=== PATIENT | female | born 1965 | race African-American/Black ===

== ENCOUNTER → 2020-08-17 08:02 | Outpatient (BNVA) | payer OTHER, SELFPAY | PROVIDERS: PCP Internal Medicine; Referring Provider Internal Medicine; Visit Provider Student in an Organized Health Care Education/Training Program | DX: Z76.89 Persons encountering health services in other specified circumstances (principal) ==

== ENCOUNTER → 2020-08-19 10:41 | Outpatient (BNVA) | payer OTHER, SELFPAY | PROVIDERS: PCP Internal Medicine; Referring Provider Internal Medicine; Visit Provider Internal Medicine Cardiovascular Disease | DX: I10 Essential (primary) hypertension (principal); R07.9 Chest pain, unspecified; Z79.899 Other long term (current) drug therapy | CPT/HCPCS: 99212 ==

== ENCOUNTER → 2020-11-10 09:26 | Outpatient (BNVA) | payer OTHER, SELFPAY | PROVIDERS: PCP Internal Medicine; Visit Provider Student in an Organized Health Care Education/Training Program | DX: M05.9 Rheumatoid arthritis with rheumatoid factor, unspecified (principal); Z79.899 Other long term (current) drug therapy | CPT/HCPCS: 99212 ==

== ENCOUNTER → 2021-02-08 08:23 | Outpatient (BNVA) | payer OTHER, SELFPAY | PROVIDERS: PCP Internal Medicine; Visit Provider Student in an Organized Health Care Education/Training Program | DX: M05.9 Rheumatoid arthritis with rheumatoid factor, unspecified (principal) | CPT/HCPCS: 99212 ==

== ENCOUNTER 2021-03-16 08:29 | Outpatient (REF) | payer OTHER, SELFPAY ==
[2021-03-18 20:56] LABS: HPV mRNA E6/E7 rflx Not Detected (Not Detected)
== END 2021-03-16 08:30 | disposition home or self-care (01) ==
LOC: HO.LAB 08:29
PROVIDERS: PCP Internal Medicine; Visit Provider Obstetrics & Gynecology
DX: Z01.419 Encounter for gynecological examination (general) (routine) without abnormal findings (principal); Z11.51 Encounter for screening for human papillomavirus (HPV)
CPT/HCPCS: 87624; 88142

== ENCOUNTER → 2021-04-28 08:23 | Outpatient (BNVA) | payer OTHER, SELFPAY | PROVIDERS: PCP Internal Medicine; Visit Provider Student in an Organized Health Care Education/Training Program ==

== ENCOUNTER 2021-07-29 12:02 | Outpatient (REF) | payer OTHER, SELFPAY ==
--- NOTE | ~2021-07-29 | MM_ITS ---
EXAMINATION: MM SCREENING DIGITAL BREAST TOMOSYNTHESIS, BILATERAL CLINICAL INFORMATION: Screening. Asymptomatic. The lifetime risk of breast cancer based on the Tyrer-Cuzick Model is 8%. COMPARISON: Mammography: 06/22/2020 and prior studies dating back to 09/22/2011. TECHNIQUE: Digital breast tomosynthesis is performed in both the craniocaudal and mediolateral oblique views along with computer-aided detection (CAD). Synthesized 2D images are generated from the tomosynthesis. Additional right MLO view is provided. FINDINGS: There are scattered areas of fibroglandular density (ACR BI-RADS breast composition Category b). Parenchymal pattern is similar to prior exams. The left breast is chronic stable asymmetry posterior outer quadrant and mild chronic duct ectasia similar to 2011. No developing density. The right breast is unremarkable. There is no interval mass or architectural abnormality or abnormal calcifications in either breast. The axilla and skin contours are unremarkable. MM/MM tomosynthesis screening BI IMPRESSION: No significant changes prior exams. ASSESSMENT: BI-RADS 2: Benign RECOMMENDATION: Routine annual mammography screening. This patient's information was entered into a reminder system with a target due date for their next mammogram.
== END 2021-07-29 12:03 | disposition home or self-care (01) ==
LOC: HO.MAMMO 12:02
PROVIDERS: PCP Internal Medicine; Visit Provider Obstetrics & Gynecology
DX: Z12.31 Encounter for screening mammogram for malignant neoplasm of breast (principal)
CPT/HCPCS: 77063; 77067

== ENCOUNTER → 2021-08-04 07:53 | Outpatient (BNVA) | payer OTHER, SELFPAY | PROVIDERS: PCP Internal Medicine; Visit Provider Nurse Practitioner Family ==

== ENCOUNTER → 2021-10-10 11:10 | Outpatient (BNVA) | payer OTHER, SELFPAY | PROVIDERS: PCP Internal Medicine; Referring Provider Internal Medicine; Visit Provider Internal Medicine Cardiovascular Disease | DX: I10 Essential (primary) hypertension (principal); Z82.49 Family history of ischemic heart disease and other diseases of the circulatory system | CPT/HCPCS: 93005 ==

== ENCOUNTER → 2021-11-08 07:55 | Outpatient (BNVA) | payer OTHER, SELFPAY | PROVIDERS: PCP Internal Medicine; Visit Provider Nurse Practitioner Family ==

== ENCOUNTER 2021-12-09 08:49 | Outpatient (REF) | payer OTHER, SELFPAY ==
--- NOTE | ~2021-12-09 | US_ITS ---
EXAMINATION: US RETROPERITONEAL LIMITED (AORTA) CLINICAL INFORMATION: Family history of AAA. COMPARISON: None TECHNIQUE: Madrigal-scale, color Doppler and spectral Doppler evaluation of the abdominal aorta. FINDINGS: The aorta is normal. The measurements of the aorta in maximum AP and transverse dimensions respectively are as follows: Proximal: 2.5 x 2.4 cm. Mid: 1.9 x 2.3 cm. Distal: 1.8 x 1.8 cm. PSV: 102 cm/s. The measurements of the common iliac arteries in maximum AP and TRV dimensions are as follows: Right Common Iliac Artery: 0.98 x 1.1 cm. Left Common Iliac Artery: 0.8 x 0.95 cm. US/US abdominal aortic aneurysm IMPRESSION: No evidence of AAA.
== END 2021-12-09 08:50 | disposition home or self-care (01) ==
LOC: HO.HMGCX 08:49
PROVIDERS: Visit Provider Internal Medicine Cardiovascular Disease
DX: Z13.6 Encounter for screening for cardiovascular disorders (principal); Z82.49 Family history of ischemic heart disease and other diseases of the circulatory system
CPT/HCPCS: 76706

== ENCOUNTER 2021-12-09 09:13 | Outpatient (REF) | payer OTHER, SELFPAY ==
[2021-12-09 11:39] LABS: MANUAL DIFF FLAG NO
[2021-12-09 11:47] LABS: Basophils Percent Auto 0.8 % (0-2); Eosinophils Absolute Auto 0.1 X10*3/uL (0.0-0.4); Eosinophils Percent Auto 2.5 % (0-4); Hematocrit 37.4 % (37.0-47.0); Hemoglobin 12.3 g/dl (12.0-16.0); Imm Gran Abs Auto 0.03 X10*3/uL (0.00-0.03); Imm Gran Pct Auto 0.6 % (0.0-0.4); Lymphocytes Absolute Auto 2.2 X10*3/uL (1.2-4.9); Lymphocytes Percent Auto 46.8 % (20-40); Mean Corpuscular HGB Conc 32.9 g/dl (31.0-35.0); Mean Corpuscular Hemoglobin 30.9 pg (27.0-33.0); Mean Platelet Volume 9.8 fL (9.4-12.3); Monocytes Absolute Auto 0.4 X10*3/uL (0.1-1.2); Monocytes Percent Auto 7.8 % (2-11); Neutrophils Percent Auto 41.5 % (45-73); Platelet Count 290 X10*3/uL (160-400); Red Blood Count 3.98 X10*6/uL (4.20-5.50); White Blood Count 4.8 X10*3/uL (4.8-10.8)
[2021-12-09 12:18] LABS: Cholesterol 188 mg/dL; HDL Cholesterol 59 mg/dL; LDL Cholesterol Calculated 113 mg/dl; Triglycerides 84 mg/dL
[2021-12-09 12:22] LABS: Alanine Aminotransferase 24 U/L (0-31); Albumin Level 4.3 g/dL (3.5-5.0); Alkaline Phosphatase 88 U/L (39-117); Anion Gap 10 (12-20); Aspartate Amino Transferase 23 U/L (5-31); Bilirubin Total 0.6 mg/dL (0.0-1.0); Blood Urea Nitrogen 9 mg/dL (9-16); C Reactive Protein 0.14 mg/dL (< or = 0.50); Calcium 9.5 mg/dL (8.4-10.2); Carbon Dioxide 29 mmol/L (22-29); Chloride 108 mmol/L (96-108); Estimated Glomerular Filt Rate > 60; Glucose Random 94 mg/dL (60-115); Potassium 4.4 mmol/L (3.3-5.1); Sodium 143 mmol/L (135-145); Total Protein 7.2 g/dL (6.5-8.0)
[2021-12-09 12:33] LABS: Erythrocyte Sedimentation Rate 8 MM/HR (0-20)
== END 2021-12-09 09:14 | disposition home or self-care (01) ==
LOC: HO.HMGCLDS 09:13
PROVIDERS: PCP Nurse Practitioner Family; Visit Provider Internal Medicine
DX: Z00.01 Encounter for general adult medical examination with abnormal findings (principal); M05.9 Rheumatoid arthritis with rheumatoid factor, unspecified; E78.2 Mixed hyperlipidemia
CPT/HCPCS: 36415; 80053; 80061; 85025; 85652; 86140

== ENCOUNTER → 2022-01-09 12:09 | Outpatient (BNVA) | payer OTHER, SELFPAY | PROVIDERS: PCP Nurse Practitioner Family; Referring Provider Internal Medicine; Visit Provider Internal Medicine Gastroenterology | DX: R19.7 Diarrhea, unspecified (principal); K80.20 Calculus of gallbladder without cholecystitis without obstruction | CPT/HCPCS: 99202 ==

== ENCOUNTER → 2022-03-07 07:56 | Outpatient (BNVA) | payer OTHER, SELFPAY | PROVIDERS: PCP Internal Medicine; Visit Provider Nurse Practitioner Family | DX: M05.9 Rheumatoid arthritis with rheumatoid factor, unspecified (principal) ==

== ENCOUNTER → 2022-03-21 07:58 | Outpatient (BNVA) | payer OTHER, SELFPAY | PROVIDERS: PCP Internal Medicine; Visit Provider Obstetrics & Gynecology | DX: Z01.419 Encounter for gynecological examination (general) (routine) without abnormal findings (principal) ==

== ENCOUNTER 2022-04-25 08:25 | Outpatient (REF) | payer OTHER, SELFPAY ==
--- NOTE | ~2022-04-25 | US_ITS ---
EXAMINATION: US ABDOMEN COMPLETE CLINICAL INFORMATION: Calculus gallbladder without cholecystitis without obstruction. COMPARISON: Ultrasound aorta 12/09/2021. TECHNIQUE: Real-time imaging of the abdominal viscera. FINDINGS: PANCREAS: Not well visualized due to bowel gas ABDOMINAL AORTA: The proximal, mid, and distal segments are normal in caliber. INFERIOR VENA CAVA: Visualized portions are normal. LIVER: The liver is normal in size. The liver contour is normal. Liver echotexture is slightly increased. No focal hepatic lesion. There is no intrahepatic biliary duct dilatation seen. GALLBLADDER: The gallbladder is physiologically distended. Multiple mobile gallstones are present. No evidence of gallbladder wall thickening or pericholecystic fluid. COMMON BILE DUCT: Normal in caliber measuring 0.4 cm in diameter. RIGHT KIDNEY: Normal. No hydronephrosis. No renal calculi or focal parenchymal lesions. The kidney measures 10.5 cm in maximum dimension. LEFT KIDNEY: Normal. No hydronephrosis. No renal calculi or focal parenchymal lesions. The kidney measures 10.2 cm in maximum dimension. SPLEEN: Normal. The spleen measures 7.5 cm in maximum dimension. FREE FLUID: None. US/US abdomen complete IMPRESSION: Gallstones. Slightly echogenic liver probably representing fatty infiltration. Limited visualization of the pancreas.
== END 2022-04-25 08:26 | disposition home or self-care (01) ==
LOC: HO.US 08:25
PROVIDERS: Visit Provider Internal Medicine Gastroenterology
DX: K80.20 Calculus of gallbladder without cholecystitis without obstruction (principal)
CPT/HCPCS: 76700

== ENCOUNTER 2022-07-01 11:37 | Outpatient (REF) | payer OTHER, SELFPAY ==
[2022-07-01 13:28] LABS: MANUAL DIFF FLAG NO
[2022-07-01 13:31] LABS: Basophils Absolute Auto 0.1 X10*3/uL (0.0-0.2); Basophils Percent Auto 1.2 % (0-2); Eosinophils Absolute Auto 0.2 X10*3/uL (0.0-0.4); Eosinophils Percent Auto 3.5 % (0-4); Hematocrit 39.8 % (37.0-47.0); Imm Gran Abs Auto 0.05 X10*3/uL (0.00-0.03); Imm Gran Pct Auto 0.9 % (0.0-0.4); Lymphocytes Absolute Auto 2.4 X10*3/uL (1.2-4.9); Lymphocytes Percent Auto 43.1 % (20-40); Mean Corpuscular HGB Conc 32.7 g/dl (31.0-35.0); Mean Corpuscular Hemoglobin 30.1 pg (27.0-33.0); Mean Corpuscular Volume 92.1 fL (80.0-98.0); Mean Platelet Volume 9.9 fL (9.4-12.3); Monocytes Absolute Auto 0.5 X10*3/uL (0.1-1.2); Monocytes Percent Auto 8.1 % (2-11); Neutrophils Absolute Auto 2.4 x10*3/uL (2.0-8.3); Neutrophils Percent Auto 43.2 % (45-73); Platelet Count 327 X10*3/uL (160-400); Red Blood Count 4.32 X10*6/uL (4.20-5.50); Red Cell Distribution Width 12.4 % (11.0-16.0); White Blood Count 5.7 X10*3/uL (4.8-10.8)
[2022-07-01 13:48] LABS: Alanine Aminotransferase 31 U/L (0-31); Albumin Level 4.5 g/dL (3.5-5.0); Alkaline Phosphatase 95 U/L (39-117); Anion Gap 15 (12-20); Aspartate Amino Transferase 27 U/L (5-31); Bilirubin Total 0.6 mg/dL (0.0-1.0); Blood Urea Nitrogen 9 mg/dL (9-16); C Reactive Protein 0.24 mg/dL (< or = 0.50); Calcium 9.9 mg/dL (8.4-10.2); Carbon Dioxide 27 mmol/L (22-29); Chloride 104 mmol/L (96-108); Estimated Glomerular Filt Rate > 60; Glucose Random 79 mg/dL (60-115); Potassium 4.3 mmol/L (3.3-5.1); Sodium 142 mmol/L (135-145); Total Protein 7.8 g/dL (6.5-8.0)
[2022-07-01 14:07] LABS: Erythrocyte Sedimentation Rate 12 MM/HR (0-20)
== END 2022-07-01 11:38 | disposition home or self-care (01) ==
LOC: HO.HMGCLDS 11:37
PROVIDERS: PCP Internal Medicine; Visit Provider Nurse Practitioner Family
DX: M05.9 Rheumatoid arthritis with rheumatoid factor, unspecified (principal)
CPT/HCPCS: 36415; 80053; 85025; 85652; 86140

== ENCOUNTER 2022-08-10 11:24 | Outpatient (REF) | payer OTHER, SELFPAY ==
--- NOTE | ~2022-08-10 | MM_ITS ---
EXAMINATION: MM SCREENING DIGITAL BREAST TOMOSYNTHESIS, BILATERAL CLINICAL INFORMATION: Screening. Asymptomatic. The lifetime risk of breast cancer based on the Tyrer-Cuzick Model is 5%. COMPARISON: Mammography: 07/29/2021, 06/22/2020, 11/24/2017 TECHNIQUE: Digital breast tomosynthesis is performed in both the craniocaudal and mediolateral oblique views along with computer-aided detection (CAD). Synthesized 2D images are generated from the tomosynthesis. FINDINGS: There are scattered areas of fibroglandular density (ACR BI-RADS breast composition Category b). There are no significant masses, abnormal calcifications, or other abnormalities. Parenchymal pattern is similar to prior studies. There is no developing density or architectural abnormality. The axilla and skin contours are unremarkable. No significant changes. MM/MM tomosynthesis screening BI IMPRESSION: No mammographic evidence of malignancy. ASSESSMENT: BI-RADS 2: Benign RECOMMENDATION: Routine annual mammography screening. This patient's information was entered into a reminder system with a target due date for their next mammogram.
== END 2022-08-10 11:25 | disposition home or self-care (01) ==
LOC: HO.MAMMO 11:24
PROVIDERS: PCP Internal Medicine; Visit Provider Internal Medicine
DX: Z12.31 Encounter for screening mammogram for malignant neoplasm of breast (principal)
CPT/HCPCS: 77063; 77067

== ENCOUNTER 2022-11-20 11:45 | Outpatient (REF) | payer OTHER, SELFPAY ==
[2022-11-20 14:10] LABS: MANUAL DIFF FLAG NO
[2022-11-20 14:19] LABS: Basophils Absolute Auto 0.1 X10*3/uL (0.0-0.2); Eosinophils Absolute Auto 0.2 X10*3/uL (0.0-0.4); Hematocrit 38.6 % (37.0-47.0); Hemoglobin 12.5 g/dl (12.0-16.0); Imm Gran Abs Auto 0.05 X10*3/uL (0.00-0.03); Imm Gran Pct Auto 0.8 % (0.0-0.4); Lymphocytes Absolute Auto 2.9 X10*3/uL (1.2-4.9); Lymphocytes Percent Auto 48.2 % (20-40); Mean Corpuscular HGB Conc 32.4 g/dl (31.0-35.0); Mean Corpuscular Hemoglobin 30.5 pg (27.0-33.0); Mean Corpuscular Volume 94.1 fL (80.0-98.0); Mean Platelet Volume 9.7 fL (9.4-12.3); Monocytes Absolute Auto 0.5 X10*3/uL (0.1-1.2); Monocytes Percent Auto 7.6 % (2-11); Neutrophils Absolute Auto 2.3 x10*3/uL (2.0-8.3); Neutrophils Percent Auto 39.4 % (45-73); Platelet Count 315 X10*3/uL (160-400); Red Cell Distribution Width 12.1 % (11.0-16.0)
[2022-11-20 14:38] LABS: Alanine Aminotransferase 26 U/L (0-31); Aspartate Amino Transferase 24 U/L (5-31); C Reactive Protein 0.24 mg/dL (< or = 0.50); Estimated Glomerular Filt Rate > 60
[2022-11-20 15:15] LABS: Erythrocyte Sedimentation Rate 12 MM/HR (0-20)
== END 2022-11-20 11:46 | disposition home or self-care (01) ==
LOC: HO.HMGCLDS 11:45
PROVIDERS: Visit Provider Nurse Practitioner Family
DX: M05.9 Rheumatoid arthritis with rheumatoid factor, unspecified (principal); Z79.899 Other long term (current) drug therapy
CPT/HCPCS: 36415; 82565; 84450; 84460; 85025; 85652; 86140

== ENCOUNTER → 2022-11-21 07:53 | Outpatient (BNVA) | payer OTHER, SELFPAY | PROVIDERS: PCP Internal Medicine; Visit Provider Nurse Practitioner Family | DX: Z13.89 Encounter for screening for other disorder (principal) ==

== ENCOUNTER 2023-03-12 12:36 | Outpatient (REF) | payer OTHER, SELFPAY ==
[2023-03-12 14:13] LABS: MANUAL DIFF FLAG NO
[2023-03-12 14:23] LABS: Basophils Absolute Auto 0.1 X10*3/uL (0.0-0.2); Basophils Percent Auto 1.1 % (0-2); Eosinophils Absolute Auto 0.2 X10*3/uL (0.0-0.4); Eosinophils Percent Auto 2.4 % (0-4); Hematocrit 38.6 % (37.0-47.0); Hemoglobin 12.5 g/dl (12.0-16.0); Imm Gran Abs Auto 0.04 X10*3/uL (0.00-0.03); Imm Gran Pct Auto 0.6 % (0.0-0.4); Lymphocytes Absolute Auto 3.6 X10*3/uL (1.2-4.9); Lymphocytes Percent Auto 54.1 % (20-40); Mean Corpuscular HGB Conc 32.4 g/dl (31.0-35.0); Mean Corpuscular Hemoglobin 30.5 pg (27.0-33.0); Mean Corpuscular Volume 94.1 fL (80.0-98.0); Mean Platelet Volume 9.4 fL (9.4-12.3); Monocytes Absolute Auto 0.5 X10*3/uL (0.1-1.2); Monocytes Percent Auto 7.2 % (2-11); Neutrophils Absolute Auto 2.3 x10*3/uL (2.0-8.3); Neutrophils Percent Auto 34.6 % (45-73); Platelet Count 316 X10*3/uL (160-400); Red Cell Distribution Width 12.4 % (11.0-16.0); White Blood Count 6.6 X10*3/uL (4.8-10.8)
[2023-03-12 14:41] LABS: Alanine Aminotransferase 30 U/L (0-31); Aspartate Amino Transferase 23 U/L (5-31); C Reactive Protein 0.13 mg/dL (< or = 0.50); Estimated Glomerular Filt Rate > 60
[2023-03-12 15:24] LABS: Erythrocyte Sedimentation Rate 8 MM/HR (0-20)
== END 2023-03-12 12:37 | disposition home or self-care (01) ==
LOC: HO.HMGCLDS 12:36
PROVIDERS: PCP Internal Medicine; Visit Provider Nurse Practitioner Family
DX: M05.9 Rheumatoid arthritis with rheumatoid factor, unspecified (principal); Z79.899 Other long term (current) drug therapy
CPT/HCPCS: 36415; 82565; 84450; 84460; 85025; 85652; 86140

== ENCOUNTER → 2023-03-21 07:38 | Outpatient (BNVA) | payer OTHER, SELFPAY | PROVIDERS: PCP Internal Medicine; Visit Provider Nurse Practitioner Family ==

== ENCOUNTER → 2023-03-26 08:03 | Outpatient (BNVA) | payer OTHER, SELFPAY | PROVIDERS: PCP Internal Medicine; Visit Provider Obstetrics & Gynecology ==

== ENCOUNTER 2023-07-03 11:48 | Outpatient (REF) | payer OTHER, SELFPAY ==
[2023-07-03 13:33] LABS: MANUAL DIFF FLAG NO
[2023-07-03 13:51] LABS: Basophils Absolute Auto 0.1 X10*3/uL (0.0-0.2); Eosinophils Absolute Auto 0.3 X10*3/uL (0.0-0.4); Eosinophils Percent Auto 3.8 % (0-4); Hematocrit 39.3 % (37.0-47.0); Hemoglobin 12.6 g/dl (12.0-16.0); Imm Gran Abs Auto 0.08 X10*3/uL (0.00-0.03); Imm Gran Pct Auto 1.2 % (0.0-0.4); Lymphocytes Absolute Auto 3.1 X10*3/uL (1.2-4.9); Lymphocytes Percent Auto 46.4 % (20-40); Mean Corpuscular HGB Conc 32.1 g/dl (31.0-35.0); Mean Corpuscular Volume 93.6 fL (80.0-98.0); Mean Platelet Volume 9.6 fL (9.4-12.3); Monocytes Absolute Auto 0.5 X10*3/uL (0.1-1.2); Monocytes Percent Auto 7.4 % (2-11); Neutrophils Absolute Auto 2.7 x10*3/uL (2.0-8.3); Neutrophils Percent Auto 40.2 % (45-73); Platelet Count 334 X10*3/uL (160-400); Red Cell Distribution Width 12.4 % (11.0-16.0); White Blood Count 6.8 X10*3/uL (4.8-10.8)
[2023-07-03 14:08] LABS: Alanine Aminotransferase 30 U/L (0-31); Aspartate Amino Transferase 30 U/L (5-31); C Reactive Protein 0.24 mg/dL (< or = 0.50); Estimated Glomerular Filt Rate > 60
[2023-07-03 14:35] LABS: Erythrocyte Sedimentation Rate 11 MM/HR (0-20)
== END 2023-07-03 11:49 | disposition home or self-care (01) ==
LOC: HO.HMGCLDS 11:48
PROVIDERS: PCP Internal Medicine; Visit Provider Nurse Practitioner Family
DX: M05.9 Rheumatoid arthritis with rheumatoid factor, unspecified (principal); Z79.899 Other long term (current) drug therapy
CPT/HCPCS: 36415; 82565; 84450; 84460; 85025; 85652; 86140

== ENCOUNTER 2023-07-05 08:03 | Outpatient (AMB) | payer OTHER, SELFPAY ==
[2023-07-05 08:10] VITALS: BP 124/76; PULSE 85; TEMP 36.2; BMI 28.6
--- NOTE | 2023-07-05 08:10 | A.OFFVIS_ITS ---
Intake Vital Signs 07/05/23 08:10 Height 5 ft 6 in Weight 177 lb 7.554 oz BMI 28.6 BP 124/76 Blood Pressure Location Rt brachial Position Sitting Pulse 85 Pulse Source Pulse Oximeter Temp 97.2 F Temp Source Skin Intake Visit Reasons: rheumatoid arthritis Intake Note: Pt seen today for RA follow up. C/o pain in right knee, trouble with stairs. 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 Accompanied by: Self / Same As Patient Allergies watermelon [WATERMELON] Allergy (Severe, Verified 07/05/23 08:12) HIVES/ASTHMA EXACERBATION latex [LATEX] Allergy (Intermediate, Verified 07/05/23 08:12) RASH/ASTHMA EXACERBATION cantaloupe Allergy (Verified 07/05/23 08:12) Hives grape Allergy (Verified 07/05/23 08:12) Hives nuts Allergy (Mild, Uncoded 07/05/23 08:12) Hives Medication List - Last Reconciled 07/05/23 by Huey Mcnulty MD acetaminophen ER (Tylenol Arthritis Pain) 1,300 mg PO Q12H PRN albuterol sulfate 90 mcg/actuation 2 puffs inhalation Q6H PRN atenolol 50 mg PO DAILY atorvastatin 40 mg PO DAILY bupropion HCl (Wellbutrin SR) 100 mg PO DAILY cetirizine (Zyrtec) 10 mg PO DAILY duloxetine 60 mg PO DAILY lactobacillus combination no.8 (Adult Probiotic) 3,000 mmu cells PO DAILY leflunomide 20 mg PO DAILY mometasone 200 mcg/actuation (Asmanex HFA) 2 puffs inhalation BID multivitamin 1 tab PO DAILY multivitamin with minerals (Hair,Skin and Nails tablet) 1 tab PO DAILY HPI HPI Comments History of Present Illness Details This is a 57-year-old female with seropositive RA who returns for follow-up. On leflunomide 20 mg daily. No recent RA flares. Recently she has been having some knee pain especially when going down the stairs and with walking. Denies any swelling or warmth. No morning stiffness. Patient states that she has history of asthma and seasonal allergies, she gets intermittent shortness of breath when going up 1 flight of stairs. generally she is not short of breath. Her most recent bone density scan was more than 3 years ago [facility] Medical History (Updated 07/05/23 @ 08:42 by Huey Mcnulty MD) Chest pain Hypertension Left ankle effusion Seropositive rheumatoid arthritis Surgical History History of tonsillectomy Family History Father HTN (hypertension) Mother HTN (hypertension) Diabetes Social History Alcohol intake: current Alcohol intake frequency: holidays/special occasions only Alcohol type: wine Patient Tobacco Use Status: Never used Tobacco e-Cigarette/Vaping Use: Never Used Female Reproductive History Menstrual Age of Menarche: 12 Review of Systems Musc Reports arthralgias Physical Exam Vital Signs: Last Vital Signs Temp 97.2 F 07/05/23 08:10 Pulse 85 07/05/23 08:10 BP 124/76 07/05/23 08:10 BMI result Body Mass Index 28.6 Const General: cooperative, healthy appearing and comfortable Nutritional Appearance: overweight Orientation/consciousness: patient oriented x3 Limitations: no limitations HEENT Head: Yes normocephalic and Yes atraumatic Mouth: moist mucous membranes Resp Effort & Inspection: normal respiratory effort and able to speak in complete sen tences Auscultation: clear to auscultation bilaterally Cardio Rate: regular rate Rhythm: regular rhythm Skin General skin exam: no rashes or lesions noted Neuro General: patient oriented x3 Extrem Other: No active synovitis Mild ulnar deviation at the MCPs of left hand Bilateral knee crepitus Minimal right knee pain with full flexion No ankle or foot swelling Normal nailfold capillaroscopy Assessment & Plan Assessment & Plan (1) Seropositive rheumatoid arthritis: Comment: ++RF++CCP dx at age 20 Plaquenil, gold, prednisone, Enbrel, Humira-dates unknown Methotrexate-05/2020-01/2021- stopped due to hair loss/GI upset Leflunomide 10 mg- 01/2021-04/2021 -active disease on exam Leflunomide 20 mg -04/2021- present effective Code(s): M05.9 - Rheumatoid arthritis with rheumatoid factor, unspecified Plan: This is a 57-year-old female with seropositive RA who presents for follow-up. Her RA is well controlled on leflunomide 20 mg daily. Inflammatory markers normal. 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 Given long exposure to steroids and history of RA, will check a bone density scan to evaluate for osteoporosis (3) High risk medication use: Code(s): Z79.899 - Other group home (current) drug therapy Plan: On leflunomide. Well tolerated. Monitor safety labs (4) Osteoarthritis of right knee: Code(s): M17.11 - Unilateral primary osteoarthritis, right knee Qualifiers: Osteoarthritis type: primary Qualified Code(s): M17.11 - Unilateral primary osteoarthritis, right knee Plan: Likely OA rather than RA. Patient can use Tylenol Arthritis, and Voltaren gel, ibuprofen sparingly. Can consider knee injection if symptoms are progressive Plan I spent 26 minutes reviewing patient's chart, evaluating patient, ordering diagnostic workup, counseling patient and documenting in the chart Orders: Orders Comprehensive Met. 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
== END 2023-07-05 08:33 | disposition home or self-care (01) ==
PROVIDERS: PCP Internal Medicine; Visit Provider Student in an Organized Health Care Education/Training Program
DX: M05.79 Rheumatoid arthritis with rheumatoid factor of multiple sites without organ or systems involvement (principal); Z79.52 Long term (current) use of systemic steroids; Z79.899 Other long term (current) drug therapy; M17.11 Unilateral primary osteoarthritis, right knee
CPT/HCPCS: 99214

== ENCOUNTER → 2023-07-05 08:03 | Outpatient (BNVA) | payer OTHER, SELFPAY | PROVIDERS: PCP Internal Medicine; Visit Provider Student in an Organized Health Care Education/Training Program ==

== ENCOUNTER 2023-07-13 10:18 | Outpatient (REF) | payer OTHER, SELFPAY ==
--- NOTE | 2023-07-13 11:52 | PFT_ITS ---
FLOWS: 1. FEV1 134% of predicted at 2.72 L. 2. FVC 126% of predicted at 3.22 L. 3. FEV1 to FVC ratio of 0.85. 4. No bronchodilator response except in small to medium airways. LUNG VOLUMES: 1. Total lung capacity 96% of predicted at 4.39 L. 2. Residual volume 68% of predicted at 1.16 L. 3. Slow vital capacity 96% of predicted at 3.24 L. 4. Expiratory reserve volume 69% of predicted at 0.71 L. 5. Diffusion capacity is normal. IMPRESSION: No obstructive or restrictive ventilatory defect. No bronchodilator response except in small to medium airways. This test results again suggest underlying asthma. Clinically correlation is advised. MD PASQUALE Stanford/MODL / [id number]
== END 2023-07-13 10:19 | disposition home or self-care (01) ==
LOC: HO.RESP 10:18
PROVIDERS: PCP Internal Medicine; Visit Provider Student in an Organized Health Care Education/Training Program
DX: R06.00 Dyspnea, unspecified (principal)
CPT/HCPCS: 94010; 94729

== ENCOUNTER → 2023-07-13 11:52 | Outpatient (BNV) | payer OTHER, SELFPAY | PROVIDERS: PCP Internal Medicine; Visit Provider Internal Medicine Pulmonary Disease | DX: R06.09 Other forms of dyspnea (principal) | CPT/HCPCS: 94060; 94727; 94729 ==

== ENCOUNTER 2023-07-26 14:58 | Outpatient (REF) | payer OTHER, SELFPAY | END 2023-07-26 14:59 | disposition home or self-care (01) | LOC: HO.MAMMO 14:58 | PROVIDERS: PCP Internal Medicine; Visit Provider Student in an Organized Health Care Education/Training Program | DX: Z13.820 Encounter for screening for osteoporosis (principal); Z79.52 Long term (current) use of systemic steroids; Z78.0 Asymptomatic menopausal state | CPT/HCPCS: 77080 ==

== ENCOUNTER 2023-08-16 11:26 | Outpatient (REF) | payer OTHER, SELFPAY ==
--- NOTE | ~2023-08-16 | MM_ITS ---
EXAMINATION: MM SCREENING DIGITAL BREAST TOMOSYNTHESIS, BILATERAL CLINICAL INFORMATION: Screening. Asymptomatic. COMPARISON: Mammography: 08/10/2022, and dating back to 03/20/2015. TECHNIQUE: Digital breast tomosynthesis is performed in both the craniocaudal and mediolateral oblique views along with computer-aided detection (CAD). Synthesized 2D images are generated from the tomosynthesis. FINDINGS: There are scattered areas of fibroglandular density (ACR BI-RADS breast composition Category b). A region of nodular asymmetry in the outer and upper left breast, posterior one third, is unchanged from studies dating back to 2014. There are associated dystrophic calcifications. There is a subtle linear region of calcifications in the upper outer left breast, unchanged from prior studies and benign. There are no suspicious masses, suspicious grouped calcifications, or areas of architectural distortion in either breast. The parenchymal pattern is stable from prior exams. MM/MM tomosynthesis screening BI IMPRESSION: No mammographic evidence of malignancy. Stable benign findings. ASSESSMENT: BI-RADS BI-RADS 2 - Benign Findings RECOMMENDATION: Routine annual mammography screening. 1 year F/U This examination should not preclude the clinical evaluation of a suspicious palpable abnormality. This patient's information was entered into a reminder system with a target due date for their next mammogram.
== END 2023-08-16 11:27 | disposition home or self-care (01) ==
LOC: HO.MAMMO 11:26
PROVIDERS: PCP Internal Medicine; Visit Provider Internal Medicine
DX: Z12.31 Encounter for screening mammogram for malignant neoplasm of breast (principal)
CPT/HCPCS: 77063; 77067

== ENCOUNTER → 2023-08-16 11:30 | Outpatient (BNV) | payer OTHER, SELFPAY | PROVIDERS: PCP Internal Medicine; Visit Provider Radiology Diagnostic Radiology | DX: Z12.31 Encounter for screening mammogram for malignant neoplasm of breast (principal) | CPT/HCPCS: 77063; 77067 ==

== ENCOUNTER 2023-11-20 16:21 | Outpatient (REF) | payer OTHER, SELFPAY ==
[2023-11-20 16:39] LABS: MANUAL DIFF FLAG NO
[2023-11-20 16:45] LABS: Basophils Absolute Auto 0.1 X10*3/uL (0.0-0.2); Basophils Percent Auto 0.7 % (0-2); Eosinophils Absolute Auto 0.2 X10*3/uL (0.0-0.4); Eosinophils Percent Auto 2.3 % (0-4); Hemoglobin 13.1 g/dl (12.0-16.0); Imm Gran Abs Auto 0.05 X10*3/uL (0.00-0.03); Imm Gran Pct Auto 0.7 % (0.0-0.4); Lymphocytes Absolute Auto 3.7 X10*3/uL (1.2-4.9); Lymphocytes Percent Auto 49.4 % (20-40); Mean Corpuscular HGB Conc 33.6 g/dl (31.0-35.0); Mean Corpuscular Hemoglobin 30.9 pg (27.0-33.0); Mean Platelet Volume 8.7 fL (9.4-12.3); Monocytes Absolute Auto 0.5 X10*3/uL (0.1-1.2); Monocytes Percent Auto 6.3 % (2-11); Neutrophils Absolute Auto 3.1 x10*3/uL (2.0-8.3); Neutrophils Percent Auto 40.6 % (45-73); Platelet Count 296 X10*3/uL (160-400); Red Blood Count 4.24 X10*6/uL (4.20-5.50); Red Cell Distribution Width 11.6 % (11.0-16.0); White Blood Count 7.5 X10*3/uL (4.8-10.8)
[2023-11-20 17:20] LABS: Alanine Aminotransferase 23 U/L (0-31); Albumin Level 4.4 g/dL (3.5-5.0); Alkaline Phosphatase 96 U/L (39-117); Anion Gap 10 (12-20); Aspartate Amino Transferase 22 U/L (5-31); Bilirubin Total 0.5 mg/dL (0.0-1.0); Blood Urea Nitrogen 9 mg/dL (9-16); C Reactive Protein 0.16 mg/dL (< or = 0.50); Calcium 9.8 mg/dL (8.4-10.2); Carbon Dioxide 27 mmol/L (22-29); Chloride 107 mmol/L (96-108); Estimated Glomerular Filt Rate > 60; Glucose Random 95 mg/dL (60-115); Potassium 3.7 mmol/L (3.3-5.1); Sodium 140 mmol/L (135-145); Total Protein 7.9 g/dL (6.5-8.0)
[2023-11-20 17:32] LABS: Erythrocyte Sedimentation Rate 9 MM/HR (0-20)
[2023-11-25 15:17] LABS: Vitamin D 25-OH, D2 <4 ng/mL; Vitamin D 25-OH, D3 36 ng/mL; Vitamin D 25-OH, Total 36 ng/mL (30-100)
== END 2023-11-20 16:22 | disposition home or self-care (01) ==
LOC: HO.LAB 16:21
PROVIDERS: PCP Internal Medicine; Visit Provider Student in an Organized Health Care Education/Training Program
DX: Z12.31 Encounter for screening mammogram for malignant neoplasm of breast (principal); M05.9 Rheumatoid arthritis with rheumatoid factor, unspecified
CPT/HCPCS: 36415; 80053; 82306; 85025; 85652; 86140

== ENCOUNTER 2023-11-21 07:40 | Outpatient (AMB) | payer OTHER, SELFPAY ==
[2023-11-21 07:44] VITALS: BP 132/80; PULSE 73; TEMP 35.8; O2SAT 96; BMI 28.6
--- NOTE | 2023-11-21 07:44 | MHC.OFFVIS ---
Intake Vital Signs 11/21/23 07:44 Height 5 ft 6 in Weight 177 lb 7.554 oz BMI 28.6 BP 132/80 Blood Pressure Location Lt brachial Position Sitting Pulse 73 Pulse Source Pulse Oximeter Temp 96.5 F L Temp Source Skin Pulse Oximetry (%) 96 Oxygen Delivery Method Room Air Intake Visit Reasons: RA Intake Note: Pt last seen 07/05/23 presents today for follow up and test results. 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 Accompanied by: Self / Same As Patient Allergies watermelon [WATERMELON] Allergy (Severe, Verified 11/21/23 07:48) HIVES/ASTHMA EXACERBATION latex [LATEX] Allergy (Intermediate, Verified 11/21/23 07:48) RASH/ASTHMA EXACERBATION cantaloupe Allergy (Verified 11/21/23 07:48) Hives grape Allergy (Verified 11/21/23 07:48) Hives nuts Allergy (Mild, Uncoded 11/21/23 07:48) Hives Medication List - Last Reconciled 11/21/23 by Huey Mcnulty MD acetaminophen ER (Tylenol Arthritis Pain) 1,300 mg PO Q12H PRN albuterol sulfate 90 mcg/actuation 2 puffs inhalation Q6H PRN atenolol 50 mg PO DAILY atorvastatin 40 mg PO DAILY bupropion HCl (Wellbutrin SR) 100 mg PO DAILY cetirizine (Zyrtec) 10 mg PO DAILY duloxetine 60 mg PO DAILY lactobacillus combination no.8 (Adult Probiotic) 3,000 mmu cells PO DAILY leflunomide 20 mg PO DAILY mometasone 200 mcg/actuation (Asmanex HFA) 2 puffs inhalation BID multivitamin 1 tab PO DAILY multivitamin with minerals (Hair,Skin and Nails tablet) 1 tab PO DAILY HPI HPI Comments History of Present Illness Details This is a 58-year-old female with seropositive RA who returns for follow-up. On leflunomide 20 mg daily. She states that she is doing well overall. She states that she does have flares of joint pain especially with overuse such as when preparing for the holidays or doing much housework. She states that recently her blood pressure has been elevated and her PCP increased her atenolol She is doing well otherwise. Patient states that she has history of asthma and seasonal allergies, she gets intermittent shortness of breath when going up 1 flight of stairs. generally she is not short of breath. Her most recent bone density scan was more than 3 years ago [facility] Medical History Chest pain Hypertension Left ankle effusion Seropositive rheumatoid arthritis Surgical History History of tonsillectomy Family History Father HTN (hypertension) Mother HTN (hypertension) Diabetes Social History Alcohol intake: current Alcohol intake frequency: holidays/special occasions only Alcohol type: wine Patient Tobacco Use Status: Never used Tobacco e-Cigarette/Vaping Use: Never Used Female Reproductive History Menstrual Age of Menarche: 12 Review of Systems Musc Denies arthralgias and Denies joint swelling Physical Exam Vital Signs: Last Vital Signs Temp 96.5 F L 11/21/23 07:44 Pulse 73 11/21/23 07:44 BP 132/80 11/21/23 07:44 Pulse Ox 96 11/21/23 07:44 Oxygen Delivery Method Room Air 11/21/23 07:44 BMI result Body Mass Index 28.6 Const General: cooperative, healthy appearing and comfortable Nutritional Appearance: overweight Orientation/consciousness: patient oriented x3 Limitations: no limitations HEENT Head: Yes normocephalic and Yes atraumatic Mouth: moist mucous membranes Resp Effort & Inspection: normal respiratory effort and able to speak in complete sentences Auscultation: clear to auscultation bilaterally Cardio Rate: regular rate Rhythm: regular rhythm Skin General skin exam: no rashes or lesions noted Neuro General: patient oriented x3 Extrem Other: No active synovitis Mild ulnar deviation at the MCPs of left hand Left 2nd and 3rd MCP thickening Bilateral knee crepitus Minimal right knee pain with full flexion No ankle or foot swelling Normal nailfold capillaroscopy Assessment & Plan Assessment & Plan (1) Seropositive rheumatoid arthritis: Comment: ++RF++CCP dx at age 20 Plaquenil, gold, prednisone, Enbrel, Humira-dates unknown Methotrexate-05/2020-01/2021- stopped due to hair loss/GI upset Leflunomide 10 mg- 01/2021-04/2021 -active disease on exam Leflunomide 20 mg -04/2021- present effective Code(s): M05.9 - Rheumatoid arthritis with rheumatoid factor, unspecified Plan: This is a 57-year-old female with seropositive RA who presents for follow-up. Her RA is well controlled on leflunomide 20 mg daily. Inflammatory markers normal. Continue leflunomide 20 mg daily PFTs showed no signs suggestive of restrictive lung disease. 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 Patient is not on steroids. 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 Well tolerated. Recently her blood pressure has been elevated at her atenolol has been increased. Leflunomide has been associated with increased blood pressure however patient has been on this medication for a number of years. This is likely unrelated. Monitor safety labs Plan I spent 26 minutes reviewing patient's chart, evaluating patient, ordering diagnostic workup, counseling patient and documenting in the chart Orders: Orders Complete Blood Count Auto Diff 4 Months Z79.899 - Other fpc (current) drug therapy Hepatitis A,B,C Profile 4 Months Z11.59 - Encounter for screening for other viral diseases Comprehensive Met. 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
== END 2023-11-21 08:08 | disposition home or self-care (01) ==
PROVIDERS: PCP Internal Medicine; Visit Provider Student in an Organized Health Care Education/Training Program
DX: M05.79 Rheumatoid arthritis with rheumatoid factor of multiple sites without organ or systems involvement (principal); Z79.52 Long term (current) use of systemic steroids; Z79.899 Other long term (current) drug therapy
CPT/HCPCS: 99214

== ENCOUNTER → 2023-11-21 07:40 | Outpatient (BNVA) | payer OTHER, SELFPAY | PROVIDERS: PCP Internal Medicine; Visit Provider Student in an Organized Health Care Education/Training Program ==

== ENCOUNTER 2024-03-31 08:06 | Outpatient (AMB) | payer OTHER, SELFPAY ==
[2024-03-31 08:08] VITALS: BP 124/70; BMI 27.4
--- NOTE | 2024-03-31 08:08 | MHC.OFFVIS ---
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 No complaints. Last Pap/HPV was negative in 03/11 Last Mammogram was BI-RADS 2 in 08/13 Last Colonoscopy was negative in 04/08, the recommendation was to repeat in 10 years [facility] Medical History Chest pain Hypertension Left ankle effusion Seropositive rheumatoid arthritis Surgical History History of tonsillectomy Family History Father HTN (hypertension) Mother HTN (hypertension) Diabetes Social History Alcohol intake: current Alcohol intake frequency: holidays/special occasions only Alcohol type: wine Patient Tobacco Use Status: Never used Tobacco e-Cigarette/Vaping Use: Never Used Female Reproductive History Menstrual Age of Menarche: 12 Total pregnancies: 4 Full term: 3 Number of Living Children: 3 Ab spontaneous: 1 Date of last pap smear: 03/17/21 Date of Mammogram: 08/16/23 Review of Systems Const All systems reviewed & are unremarkable except as noted in HPI and below Card Reports as per HPI Resp Reports as per HPI GI Reports as per HPI and Reports no additional complaints Reports as per HPI Physical Exam Const General: cooperative, healthy appearing and comfortable Chest Chest palpation & inspection: normal inspection of the chest and normal palpation of entire chest wall Breast/axilla inspection: normal inspection of the breasts and normal inspection of the axillae Breast/axilla palpation: normal palpation of the breasts, normal palpation of the axillae and no axillary lymphadenopathy Resp Effort & Inspection: normal respiratory effort Auscultation: clear to auscultation bilaterally Percussion: percussion normal Cardio Palpation: normal PMI Rate: regular rate Rhythm: regular rhythm Heart sounds: no murmurs and no rubs Peripheral pulses: Peripheral pulses 2+ throughout GI Inspection: Yes normal to inspection Palpation (GI): Soft to palpation, nontender, no guarding, not rigid and No hepatosplenomegaly present Percussion: Yes normal to percussion Auscultation: normal bowel sounds Rectal Exam - Female: deferred General: Yes bladder normal to palpation External Female Exam: No lesion Speculum Exam - Vagina: normal appearance of the vagina, normal palpation, normal vaginal discharge and not erythematous Speculum Exam - Cervix: normal appearance of the cervix and normal palpation Bimanual exam- vagina & uterus: normal bimanual exam, normal palpation, uterine size normal, bladder normal to palpation, consistency normal and normal palpation Bimanual Exam- Adnexa, other: normal adnexae, no masses and no tenderness Assessment & Plan Assessment & Plan (1) Well woman exam: Code(s): Z01.419 - Encounter for gynecological examination (general) (routine) without abnormal findings Category: Medical Plan: Co testing not indicated this year. Counseled the patient about the recommended dietary allowance of 1200 mg of Calcium & 600 IU of vitamin D. Instructions given the patient to schedule next screening Mammogram in 08/14. The patient was instructed to perform monthly self-breast exams and schedule annual exam in a year. All questions answered and the patient verbalized understanding. Coding Level of Care Code Est Pt Prev Care 40-64y(10396) Diagnoses Well woman exam Z01.419
== END 2024-03-31 08:44 | disposition home or self-care (01) ==
LOC: HO.HWS 08:06
PROVIDERS: PCP Internal Medicine; Visit Provider Obstetrics & Gynecology
DX: Z01.419 Encounter for gynecological examination (general) (routine) without abnormal findings (principal)
CPT/HCPCS: 99396

== ENCOUNTER → 2024-03-31 08:06 | Outpatient (BNVA) | payer OTHER, SELFPAY | PROVIDERS: PCP Internal Medicine; Visit Provider Obstetrics & Gynecology ==

== ENCOUNTER 2024-12-13 11:45 | Emergency (ER) | payer OTHER, SELFPAY ==
[2024-12-13] VITALS (9 sets, daily range): BP systolic 133–195; BP diastolic 80–100; PULSE 66–76; RESP 16–20; TEMP 36.5–36.7; O2SAT 98–100; BMI 28.4
--- NOTE | ~2024-12-13 | XR_ITS ---
CLINICAL HISTORY: HTN 2 view chest x-ray Comparison: CR/SR - CHEST 2 VIEWS - 05/14/20 11:28 EDT Findings: No focal consolidation. No pleural effusion or pneumothorax. Normal size cardiac silhouette. No acute fracture. IMPRESSION: 1. No acute findings. This document has been electronically signed by: Elif Shaver MD on 12/13/2024 13:00:45
--- NOTE | ~2024-12-13 | CT_ITS ---
CLINICAL HISTORY: headache, HTN CT head without contrast Comparison: None Findings: No intracranial mass, midline shift, hydrocephalus, or acute hemorrhage. No acute process in sinuses or mastoids. No acute bony abnormality. Impression: No acute intracranial process This document has been electronically signed by: Malick Barajas MD on 12/13/2024 19:38:06
--- NOTE | 2024-12-13 11:47 | ED.GENADULT ---
HPI - General Adult General Chief complaint: General Medical Stated complaint: High BP Time Seen by Provider: 12/13/24 18:26 Source: patient Mode of arrival: ambulatory Limitations: no limitations History of Present Illness ED Provider: GILBERT HPI narrative: 59 yo female with PMH of HTN, RA here with c/o elevated BPs for the past several days. She is on atenolol 100mg daily - she has been on it for a long time. She just saw her PCP and BP was high on - he wanted to bring her in on Sunday for recheck and possibly start a new HTN med. She feels her head hurts and it is foggy. She has no numbness, weakness, chest pain, trouble breathing. She has never been on blood pressure medications before. She denies any new medications or cause of the elevated BP. Her BP at home has been 180/110. complaint: HTN Onset (ago): day(s) (several) Location: head Radiation: non-radiation Severity: mild Quality: dull Pain Consistency: constant Relieving factors: none Exacerbating factors: none Associated symptoms: headaches Related Data Home Medications ?Medication ?Instructions ?Recorded ?Confirmed acetaminophen 650 mg 1,300 mg PO Q12H PRN 08/17/20 11/21/22 tablet,extended release (Tylenol Arthritis Pain) albuterol sulfate 90 mcg/actuation 2 puff inhalation Q6H PRN 08/17/20 11/21/22 aerosol inhaler atorvastatin 40 mg tablet 40 mg PO DAILY 08/17/20 11/21/22 cetirizine 10 mg tablet (Zyrtec) 10 mg PO DAILY 08/17/20 11/21/22 duloxetine 60 mg capsule,delayed 60 mg PO DAILY 08/17/20 11/21/22 release lactobacillus combination no.8 3 3,000 mmu cells PO DAILY 08/17/20 11/21/22 billion cell capsule (Adult Probiotic) mometasone 200 mcg/actuation HFA 2 puff inhalation BID 08/17/20 11/21/22 aerosol inhaler (Asmanex HFA) multivitamin 1 tab PO DAILY 08/17/20 11/21/22 multivitamin with minerals 1 tab PO DAILY 08/17/20 11/21/22 (Hair,Skin and Nails tablet) atenolol 25 mg tablet 50 mg PO DAILY 08/04/21 11/21/22 bupropion HCl 100 mg tablet,12 hr 100 mg PO DAILY 08/04/21 11/21/22 sustained-release (Wellbutrin SR) Previous Rx's ?Medication ?Instructions ?Recorded leflunomide 20 mg tablet 20 mg PO DAILY #90 tabs 11/26/24 lisinopril 10 mg tablet 10 mg PO DAILY #30 tabs 12/13/24 Allergies Allergy/AdvReac Type Severity Reaction Status Date / Time watermelon [WATERMELON] Allergy Severe HIVES/ASTHMA Verified 12/13/24 11:54 EXACERBATION latex [LATEX] Allergy Intermediate RASH/ASTHMA Verified 12/13/24 11:54 EXACERBATION cantaloupe Allergy Hives Verified 12/13/24 11:54 grape Allergy Hives Verified 12/13/24 11:54 nuts Allergy Mild Hives Uncoded 03/31/24 08:13 Review of Systems Review of Systems: Constitutional : No Fever, No Chills, No Fatigue ENT/Mouth : No sore throat, No Rhinorrhea Eyes: No Eye Pain, No Swelling, No Redness Cardiovascular : No Chest Pain, No SOB, No Dyspnea on Exertion Respiratory : No Cough, No Sputum Gastrointestinal : No Nausea, No Vomiting, No Diarrhea, No abdominal Pain Genitourinary : No Dysuria, No Urinary Frequency, No Hematuria, Musculoskeletal : No joint pain, No Myalgias, No Joint Swelling Skin : No Skin Lesions, No rash Neuro : No Weakness, No Numbness, No Dizziness, positive Headache All other systems reviewed and are negative PMFSH Past Medical History Attestation statement: The following information was validated with the patient. Source: old records reviewed Medical History Chest pain Hypertension Left ankle effusion Seropositive rheumatoid arthritis Surgical History History of tonsillectomy Family History Family History Father HTN (hypertension) Mother HTN (hypertension) Diabetes Social History Social History Alcohol intake: current Alcohol intake frequency: holidays/special occasions only Alcohol type: wine Patient Tobacco Use Status: Never used Tobacco e-Cigarette/Vaping Use: Never Used Advance Directives: No Advance Directives Information Provided: No Do you have a plan to hurt others: No Plan Physical Exam ED Vital Signs: Vital Signs - 24 hr 12/13/24 11:49 12/13/24 16:59 12/13/24 18:36 Temperature 98.0 F 97.7 F Pulse Rate 73 76 74 Respiratory Rate 18 18 16 Blood Pressure 191/100 H 188/92 H 172/93 H Pulse Oximetry 100 98 100 Oxygen Delivery Method Room Air Room Air Room Air 12/13/24 18:46 12/13/24 19:29 12/13/24 19:32 Temperature Pulse Rate 66 Respiratory Rate 20 Blood Pressure 172/93 H 195/90 H 195/90 H Pulse Oximetry 98 Oxygen Delivery Method Room Air 12/13/24 19:42 12/13/24 20:21 Temperature Pulse Rate 67 68 Respiratory Rate 18 16 Blood Pressure 151/84 H 137/84 Pulse Oximetry 100 98 Oxygen Delivery Method Room Air Room Air BMI result Body Mass Index 28.4 Appearance: Alert. Oriented X3. No acute distress. Eyes: Pupils equal, round and reactive to light. ENT: Pharynx normal. Neck: Normal inspection. Neck supple. CVS: Normal heart rate and rhythm. Pulses normal. Respiratory: No respiratory distress. Breath sounds normal. Abdomen: Soft and nontender. Skin: Skin warm and dry. Normal skin color. Normal skin turgor. Extremities: No lower extremity edema. No calf ttp Neuro: Oriented X 3. No motor deficit. No sensory deficit. CN2-12 intact NIH Stroke Scale Internal: Initial- Upon Arrival Level of Consciousness: Alert Level of Consciousness Questions: Answers both questions correctly Level of Consciousness Commands: Performs both tasks correctly Best Gaze: Normal Visual: No visual loss Facial Palsy: Normal Motor Arm (Right): No drift Motor Arm (Left): No drift Motor Leg (Right): No drift Motor Leg (Left): No drift Limb Ataxia: Absent Sensory: Normal Best Language: No aphasia Dysarthia: Normal Extinction and Inattention: No abnormality Score: 0 Course Course Course Narrative: RME performed by Hanane Mcduffie PA-C. Patient is a 59 year old assigned female at presenting to the emergency department with concerns of high blood pressure. Patient states that she has been feeling generally unwell and is concerned her blood pressure has been high. Detailed physical exam and review of systems are deferred to the speech clinician. EKG, labs, imaging, and swabs ordered. Patient placed back in the waiting room pending room availability and results. Reevaluation(s) Reevaluation #1: BP still high IV hydralazine ordered repeat trop flat Medications Administered Discontinued Medications Generic Name Dose Route Start Last Admin Trade Name Mena PRN Reason Stop Dose Admin Hydralazine HCl 5 mg 12/13/24 19:27 12/13/24 19:32 Hydralazine Hcl 20 Mg/Ml Vial IVPUSH 12/13/24 19:28 5 mg ONCE ONE Administration Protocol Lisinopril 10 mg 12/13/24 18:37 12/13/24 18:46 Lisinopril 10 Mg Tablet PO 12/13/24 18:38 10 mg ONCE ONE Administration Protocol Medical Decision Making Medical Decision Making [facility] Narrative: 59 yo female wtih PMH of HTN, RA here with c/o dull headache and feeling foggy with elevated BPs for the past few days even at her doctor's office. She is compliant with her medications. At this time will obtain basic labs, trop x 2, CT head, PO lisinopril started currently BP on eval is 172/93. She has no signs of end organ damage on exam. Differential Diagnosis Differential Diagnoses: The differential diagnosis associated with the presentation includes uncontrolled HTN, headaches Admission/Observation Consideration of admission/observation: Escalation of care including admission/observation considered head CT negative EKG negative trop flat x 2 after oral lisinopril and very low dose hydralazine she is much better and has trended down and held at this time stable for DC she is reliable Lab Data [facility] Lab Attestation statement: I reviewed the patient's lab results. 12/13/24 12:09 12/13/24 12:09 Labs: Lab Results 12/13/24 12/13/24 Range/Units 12:09 18:43 WBC 7.6 (4.8-10.8) X10*3/uL RBC 4.35 (4.20-5.50) X10*6/uL Hgb 13.6 (12.0-16.0) g/dl Hct 40.5 (37.0-47.0) % MCV 93.1 (80.0-98.0) fL MCH 31.3 (27.0-33.0) pg MCHC 33.6 (31.0-35.0) g/dl RDW 11.8 (11.0-16.0) % Plt Count 287 (160-400) X10*3/uL MPV 8.7 L (9.4-12.3) fL Immature Gran % (Auto) 0.9 H (0.0-0.4) % Neut % (Auto) 44.0 L (45-73) % Lymph % (Auto) 43.3 H (20-40) % [place] % (Auto) 6.3 (2-11) % Eos % (Auto) 4.6 H (0-4) % Baso % (Auto) 0.9 (0-2) % Lymph # (Auto) 3.3 (1.2-4.9) X10*3/uL [place] # (Auto) 0.5 (0.1-1.2) X10*3/uL Eos # (Auto) 0.4 (0.0-0.4) X10*3/uL Baso # (Auto) 0.1 (0.0-0.2) X10*3/uL Abs Immat Gran (auto) 0.07 H (0.00-0.03) X10*3/uL Absolute Neuts (auto) 3.3 (2.0-8.3) x10*3/uL Absolute Nucleated RBC 0.000 (0.0-0.012) X10*3/uL Nucleated RBC % (auto) 0.0 (0.0-0.2) /100WBC Sodium 141 (135-145) mmol/L Potassium 4.2 (3.3-5.1) mmol/L Chloride 107 (96-108) mmol/L Carbon Dioxide 26 (22-29) mmol/L Anion Gap 12 (12-20) BUN 8 L (9-16) mg/dL Creatinine 0.87 (0.5-1.4) mg/dL Estim Creat Clear Calc 76.0 Estimated GFR > 60 Random Glucose 107 (60-115) mg/dL Calcium 9.7 (8.4-10.2) mg/dL Magnesium 2.2 (1.6-2.6) mg/dL Total Bilirubin 0.7 (0.0-1.0) mg/dL AST 33 H (5-31) U/L ALT 34 H (0-31) U/L Alkaline Phosphatase 113 (39-117) U/L Troponin I High Sens 9.1 8.8 (<3.5-17.0) ng/L Total Protein 8.3 H (6.5-8.0) g/dL Albumin 4.4 (3.5-5.0) g/dL Influenza Type A (PCR) NEGATIVE (Negative) Influenza Type B (PCR) NEGATIVE (Negative) RSV RNA Qual (PCR) NEGATIVE (Negative) SARS-CoV-2 RNA (RT-PCR) NEGATIVE (Negative) Independent Interpretation I performed an independent interpretation of an: EKG, Plain X-Ray (normal ) and CT Scan (normal ) Interpretation: Rate: 64 Rhythm: NSR [place]: normal LVH Normal P waves. Normal UNRULY. Normal QRS complex. ST T wave : no JENNIFER, inverted t waves V1 and III qTC: 410 prior studies: no acute ischemia The study has been interpreted contemporaneously by me. . Radiology Impression Discussion of test interpretation with radiology: I have reviewed the radiologist's reading. External Record Review External record reviewed: Outpatient record Prescription Management I considered prescription management with: Other Discharge Plan Discharge Clinical Impression: Hypertension Qualifiers: Hypertension type: unspecified Qualified Code(s): I10 - Essential (primary) hypertension Patient Disposition: Home, Self-Care Instructions: Chronic Hypertension (ED) Additional Instructions: CT head normal today chest xray normal labs reassuring including repeat troponin EKG reassuring start lisinopril tomorrow you had a one point bump in LFTs - can repeat with doctor meaning AST/ALT were so minimally elevated it is not in a dangerous range at all return for any worsening symptoms, confusion, numbness, weakness, pain, elevated BPs CLINICAL HISTORY: headache, HTN CT head without contrast Comparison: None Findings: No intracranial mass, midline shift, hydrocephalus, or acute hemorrhage. No acute process in sinuses or mastoids. No acute bony abnormality. Impression: No acute intracranial process CLINICAL HISTORY: HTN 2 view chest x-ray Comparison: CR/SR - CHEST 2 VIEWS - 05/14/20 11:28 EDT Findings: No focal consolidation. No pleural effusion or pneumothorax. Normal size cardiac silhouette. No acute fracture. IMPRESSION: 1. No acute findings Prescriptions: New lisinopril 10 mg tablet 10 mg PO DAILY Qty: 30 1RF No Action leflunomide 20 mg tablet 20 mg PO DAILY Qty: 90 1RF duloxetine 60 mg capsule,delayed release(DR/EC) 60 mg PO DAILY cetirizine [Zyrtec] 10 mg tablet 10 mg PO DAILY multivitamin Tablet 1 tab PO DAILY albuterol sulfate 90 mcg/actuation HFA aerosol inhaler 2 puff inhalation Q6H PRN Asmanex HFA 200 mcg/actuation HFA aerosol inhaler 2 puff inhalation BID acetaminophen [Tylenol Arthritis Pain] 650 mg tablet extended release 1,300 mg PO Q12H PRN atorvastatin 40 mg tablet 40 mg PO DAILY multivitamin with minerals [Hair,Skin and Nails] Tablet 1 tab PO DAILY Adult Probiotic 3 billion cell capsule 3,000 mmu cells PO DAILY Rx Instructions: administer with a meal atenolol 25 mg tablet 50 mg PO DAILY bupropion HCl [Wellbutrin SR] 100 mg tablet sustained-release 12 hr 100 mg PO DAILY Print Language: Mongolian
--- NOTE | 2024-12-13 11:53 | ECG_ITS ---
Test Reason : HTN Blood Pressure : */* mmHG Vent. Rate : 64 BPM Atrial Rate : 64 BPM P-R Int : 138 ms QRS Dur : 84 ms QT Int : 398 ms P-R-T Axes : 36 18 1 degrees QTcB Int : 410 ms Normal sinus rhythm Moderate voltage criteria for LVH, may be normal variant ( R in aVL , Sokolow-Cottrell ) Borderline ECG No previous ECGs available Referred By: Hanane Mcduffie Electronically Signed By: VITA FUCHS
[2024-12-13 12:15] LABS: MANUAL DIFF FLAG NO
[2024-12-13 12:17] LABS: Basophils Absolute Auto 0.1 X10*3/uL (0.0-0.2); Basophils Percent Auto 0.9 % (0-2); Eosinophils Absolute Auto 0.4 X10*3/uL (0.0-0.4); Eosinophils Percent Auto 4.6 % (0-4); Hematocrit 40.5 % (37.0-47.0); Hemoglobin 13.6 g/dl (12.0-16.0); Imm Gran Abs Auto 0.07 X10*3/uL (0.00-0.03); Imm Gran Pct Auto 0.9 % (0.0-0.4); Lymphocytes Absolute Auto 3.3 X10*3/uL (1.2-4.9); Lymphocytes Percent Auto 43.3 % (20-40); Mean Corpuscular HGB Conc 33.6 g/dl (31.0-35.0); Mean Corpuscular Hemoglobin 31.3 pg (27.0-33.0); Mean Corpuscular Volume 93.1 fL (80.0-98.0); Mean Platelet Volume 8.7 fL (9.4-12.3); Monocytes Absolute Auto 0.5 X10*3/uL (0.1-1.2); Monocytes Percent Auto 6.3 % (2-11); Neutrophils Absolute Auto 3.3 x10*3/uL (2.0-8.3); Platelet Count 287 X10*3/uL (160-400); Red Blood Count 4.35 X10*6/uL (4.20-5.50); Red Cell Distribution Width 11.8 % (11.0-16.0); White Blood Count 7.6 X10*3/uL (4.8-10.8)
[2024-12-13 12:35] LABS: Alanine Aminotransferase 34 U/L (0-31); Albumin Level 4.4 g/dL (3.5-5.0); Alkaline Phosphatase 113 U/L (39-117); Anion Gap 12 (12-20); Aspartate Amino Transferase 33 U/L (5-31); Bilirubin Total 0.7 mg/dL (0.0-1.0); Blood Urea Nitrogen 8 mg/dL (9-16); Calcium 9.7 mg/dL (8.4-10.2); Carbon Dioxide 26 mmol/L (22-29); Chloride 107 mmol/L (96-108); Estimated Glomerular Filt Rate > 60; Glucose Random 107 mg/dL (60-115); Magnesium 2.2 mg/dL (1.6-2.6); Potassium 4.2 mmol/L (3.3-5.1); Sodium 141 mmol/L (135-145); Total Protein 8.3 g/dL (6.5-8.0)
[2024-12-13 12:42] LABS: Troponin-I High Sensitivity 9.1 ng/L (<3.5-17.0)
[2024-12-13 12:55] LABS: Influenza A PCR NEGATIVE (Negative); Influenza B PCR NEGATIVE (Negative); Resp Syncy Virus RNA Qual PCR NEGATIVE (Negative); SARS COV2 PCR INHOUSE NEGATIVE (Negative)
[2024-12-13] MEDS: lisinopriL 10 MG TABLET PO (18:46)
--- OUTSIDE RECORDS SUMMARY | 2024-12-13 18:46 | XMS_ITS | Data Portability ---
Author Organization [facility] Address [address] [facility] [address] [place] [address] Assessment Encounter Date Assessment Date Assessment LastModified by Organization Details LastModified Time 11/24/2019 11/24/2019 Ly Gray is a 54 year old woman with neck pain radiating into right upper back. She has myofascial pain syndrome in her upper back. Trigger points were palpated with reproduction of her pain in the right trapezius muscle . She is here for a trial of trigger point injection in right trapezius muscle under ultrasound guidance . The risks and benefits of the procedure were discussed and she wishes to proceed . She will follow up in two weeks [email or web address] Not available 11/24/2019 15:39:19 12/08/2019 12/08/2019 Ly Gray is a 54 year old woman with neck pain radiating into right upper back. She has myofascial pain syndrome in her upper back. Trigger points were palpated with reproduction of her pain in the right trapezius muscle . She is here for a trigger point injection in right trapezius muscle under ultrasound guidance . The risks and benefits of the procedure were discussed and she wishes to proceed . She will follow up in two weeks [email or web address] Not available 12/08/2019 16:04:46 12/25/2019 12/25/2019 Ly Gray is a 54 year old woman with neck pain radiating into right upper back. She has myofascial pain syndrome in her upper back. Trigger points were palpated with reproduction of her pain in the right trapezius muscle . She is here for a follow up after a trial of trigger point injections. She reports good ongoing pain benefit. She can follow up as needed. [email or web address] Not available 12/25/2019 17:11:25 04/01/2020 04/01/2020 Ly Gray is a 54 year old woman with neck pain radiating into right upper back. She has myofascial pain syndrome in her upper back. Trigger points were palpated with reproduction of her pain in the right trapezius muscle . She is here for a trigger point injection in right trapezius muscle under ultrasound guidance . The risks and benefits of the procedure were discussed and she wishes to proceed . She will follow up in two weeks hadley Not available 04/01/2020 15:17:56 04/21/2020 04/21/2020 Ly Gray is a 54 year old woman with neck pain radiating into right upper back. She has myofascial pain syndrome in her upper back. Trigger points were palpated with reproduction of her pain in the right trapezius muscle . She is here for a trigger point injection in right trapezius muscle under ultrasound guidance . The risks and benefits of the procedure were discussed and she wishes to proceed . She will follow up as needed hadley Not available 04/21/2020 14:27:28 Plan of Treatment Reminders Order Date Submit Date Provider Last Modified By Organization Details Last Modified Time Details Appointments None record ed. Lab None record ed. Referral None record ed. Procedures None record ed. Surgeries None record ed. Imaging None record ed. Medication Orders None record ed. Patient TargetsNo targets recorded. Patient InstructionsNo instructions recorded. Reason for Referral None Reported. Problems Name Problem SNOMED Code Status Onset Date Resolution Date Notes Provider Name and Address Organization Details Recorded Time Degeneration of cervical intervertebral disc 83555270 Nadeen mccarty MD [address] [facility] , [address], [place], [address], [place] [facility] 0 15:23:29 Muscle pain 23590478 Nadeen mccarty MD [address] , [address], [place], [address], [place] [facility] 0 15:23:39 Cervical radiculopathy 87560854 Nadeen mccarty MD [address] , [address], [place], [address], [place] [facility] 0 15:32:48 Problem Notes None recorded. Procedures Surgical History Date Name Laterality Status Provider Name and Address Organization Details Recorded Time 0 Trigger Point Injections under ultrasound guidance completed Dane Arroyo MD [address] [facility] , [address], [place], [address], [place] [facility] 04/21/2020 14:26:48 0 Trigger Point Injections under ultrasound guidance completed Dane Arroyo MD [address] [facility] , [address], [place], [address], [place] [facility] 04/01/2020 15:18:06 0 Trigger Point Injections under ultrasound guidance completed Dane Arroyo MD [address] [facility] [facility] , [address], [place], [address], [place] [facility] 12/08/2019 16:03:55 0 Trigger Point Injections under ultrasound guidance completed Dane Arroyo MD [address] [facility] , [address], [place], [address], [place] [facility] 11/24/2019 15:37:48 Imaging Results None recorded. Procedure Notes None recorded. Medical Equipment None Reported. Allergies Allergen ID Allergen Name Allergen Category Reaction Reaction Severity Criticality Documentation Date Start Date Code Code System Note Provider Name and Address Organization Details Recorded Time 43524 latex environme nt,medica tion Not available Not available Not available 11/13/2019 37112 91 RxNorm Belia tillman, [place] [facility] 0 13:16:49 Medications Name Sig Start Date Stop Date Status Note LastModified by Organization Details LastModified Time atorvastati n 40 mg tablet active Not Available Not Available Not Available trazodone 50 mg tablet TAKE 1 TABLET BY MOUTH EVERYDAY AT BEDTIME active Not Available Not Available No t Available atenolol 25 mg tablet TAKE 1 TABLET BY MOUTH EVERY DAY active Not Available Not Available No t Available econazole nitrate 1 % topical cream active Not Available Not Available Not Available tacrolimus 0.1 % topical ointment active Not Available Not Available Not Available dexamethaso ne 4 mg tablet 11/13 completed Not Available Not Available Not Available mometasone 0.1 % topical ointment PLEASE SEE ATTACHED FOR DETAILED DIRECTION S active Not Available Not Available No t Available albuterol sulfate HFA 90 mcg/actuati on aerosol inhaler TAKE 2 PUFFS BY MOUTH EVERY 4 TO 6 HOURS NEEDED active Not Available Not Available No t Available betamethaso ne dipropionat e 0.05 % topical ointment active Not Available Not Available Not Available fluticasone propionate 50 mcg/actuati on nasal spray,suspe nsion active Not Available Not Available Not Available amoxicillin 875 mg-potassiu m clavulanate 125 mg tablet 11/13 completed Not Available Not Available Not Available duloxetine 60 mg capsule,del ayed release TAKE 1 CAPSULE BY MOUTH EVERY DAY active Not Available Not Available No t Available Asmanex HFA 100 mcg/actuati on aerosol inhaler active Not Available Not Available Not Available Vitals Date Recorded Body height Heart rate Oxygen saturation Oxygen saturation in Arterial blood by Pulse oximetry Systolic blood pressure Diastolic blood pressure Provider Name and Address Organization Details Last Updated DateTime 0 167.64 cm 79 /min 97 % 97 % 126 mm[Hg] 75 mm[Hg] Margot Florez [place] [facility] 0 15:20:31 Date Recorded Body height Heart rate Oxygen saturation Oxygen saturation in Arterial blood by Pulse oximetry Systolic blood pressure Diastolic blood pressure Provider Name and Address Organization Details Last Updated DateTime 0 167.64 cm 102 /min 98 % 98 % 134 mm[Hg] 83 mm[Hg] Margot Florez [place] [facility] 0 15:03:48 Date Recorded Body height Heart rate Oxygen saturation Oxygen saturation in Arterial blood by Pulse oximetry Systolic blood pressure Diastolic blood pressure Provider Name and Address Organization Details Last Updated DateTime 0 167.64 cm 94 /min 98 % 98 % 123 mm[Hg] 78 mm[Hg] Dane mccarty MD [address] , [address], [place], [address], [place] [facility] 0 15:29:53 Date Recorded Body height Heart rate Oxygen saturation Oxygen saturation in Arterial blood by Pulse oximetry Systolic blood pressure Diastolic blood pressure Provider Name and Address Organization Details Last Updated DateTime 0 167.64 cm 81 /min 99 % 99 % 126 mm[Hg] 95 mm[Hg] Dane mccarty MD [address] , [address], [place], [address], [place] [facility] 0 13:44:32 Date Recorded Body height Heart rate Oxygen saturation Oxygen saturation in Arterial blood by Pulse oximetry Body mass index (BMI) Body weight Systolic blood pressure Diastolic blood pressure Provider Name and Address Organization Details Last Updated DateTime 0 167.64 cm 90 /min 98 % 98 % 26.6 kg/m2 25093.7 4 g 119 mm[Hg] 77 mm[Hg] Dane mccarty MD [address] [facility] , [address], [place], [address], [place] [facility] 0 14:25:25 Social History Question Answer Notes LastModified by Organizat ion Details LastModified Time Tobacco Smoking Status Former Smoker Not Available [facility] 08/06/2020 03:16:10 What Is Your Level Of Alcohol Consumption? Occasional [id number] Information not available 08/06/2020 Are You Currently Employed? Yes [id number] Information not available 08/06/2020 Which Illicit Or Recreational Drugs Have You Used? None [id number] Information not available 08/06/2020 Do You Or Have You Ever Used E-cigarettes Or Vape? 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 Mental Status None recorded. Family History Nothing Reported. Medical History Condition Response Coronary Artery Disease N Gout Y Neuropathy/Neuralgia N Kidney Stones N Hyperthyroidism N Hypothyroidism N Depression Y COPD N Hepatitis C N Migrane Y Diabetes N Anxiety Disorder Y Arthritis Y Seizures/Epilepsy N Hyperlipidemia N Cancer N Stroke N Asthma Y HIV/AIDS N Headache Y Bipolar Disorder N GERD/Reflux N Liver Disease N Pulmonary Embolism N Fibromyalgia Y Irritable Bowel Syndrome Y Hypertension Y Osteoporosis N Kidney Disease N Gynecological HistoryNo gynecological history recorded. Obstetrics History GPAL:G 0 P 0 0 0 0 Past Encounters Encounter ID Performer Location Encounter Start Date Encounter Closed Date Diagnosis/Indication Diagnosis SNOMED-CT Code Diagnosis ICD10 Code Diagnosis Note [id number] Dane Arroyo MD [facility] [address] [facility] [place] [address] 11/13/2019 13:02:16 11/14/2019 15:38:58 Degeneration of cervical intervertebral disc 36617634 M50.30 Muscle pain 74359209 M79 .10 Cervical radiculopathy 99559658 M54.12 [id number] Dane Arroyo MD [facility] [address] [facility] [place] [place] [address] 11/24/2019 15:13:24 11/24/2019 15:40:23 Degeneration of cervical intervertebral disc 86915256 M50.30 Muscle pain 16508527 M79 .10 Cervical radiculopathy 77987421 M54.12 [id number] Dane Arroyo MD [facility] [address] [facility] [place] [address] 12/08/2019 14:50:07 12/08/2019 16:05:50 Degeneration of cervical intervertebral disc 26244060 M50.30 Muscle pain 67038856 M79 .10 Cervical radiculopathy 53192497 M54.12 [id number] Dane Arroyo MD [facility] [address] [facility] [place] [place] [address] 12/25/2019 15:28:34 12/25/2019 17:12:08 Degeneration of cervical intervertebral disc 21724992 M50.30 Muscle pain 12007503 M79 .10 Cervical radiculopathy 58051829 M54.12 [id number] Dane Arroyo MD [facility] [address] [facility] [place] [place] [address] 04/01/2020 13:36:40 04/01/2020 15:19:58 Degeneration of cervical intervertebral disc 77196960 M50.30 Muscle pain 76538893 M79 .10 Cervical radiculopathy 33047075 M54.12 [id number] Dane Arroyo MD [facility] [address] [facility] [place] [address] 04/21/2020 13:53:16 04/22/2020 09:27:06 Degeneration of cervical intervertebral disc 56396801 M50.30 Muscle pain 54943947 M79 .10 Cervical radiculopathy 57599041 M54.12 Health Concerns Section Related Observation LastModified by Organization Detai ls LastModified Time None Recorded Concern Status LastModified by Organization Details LastModified Time None Recorded Advance Directives Directive None Recorded Payers Encounter Date Sequence Insurance Name Policy Number Policy Ortega Covered Member ID Ortega Member ID Guarantor Name 11/24/2019 1 [facility] [id number] Charmian Gray [id number] Charmian Gray 11/24/2019 2 () Charmian Gray [id number] Charmian Gray 12/08/2019 1 [facility] [id number] Charmian Gray [id number] Charmian Gray 12/08/2019 2 () [facility] [id number] [facility] 12/25/2019 1 [facility] [id number] Charmian Gray [id number] Charmian Gray 12/25/2019 2 () Charmian Gray [id number] Charmian Gray 04/01/2020 1 [facility] [id number] Charmian Gray [id number] Charmian Gray 04/01/2020 2 () Charmian Gray [id number] Charmian Gray 04/21/2020 1 [facility] [id number] Charmian Gray [id number] Charmian Gray 04/21/2020 2 () Charmian Gray [id number] Charmian Gray Notes Date Note Type Note Provider Name and Address Organization Details Recorded Time 11/24/2019 text/html She is here for a trial of trigger point steroid injection in right trapezius muscle under ultrasound guidance. Dane Arroyo MD [address] [facility] [address], [place], [address], [facility] 11/24/2019 16:03:07 12/08/2019 text/html She is here for a repeat trigger point steroid injection in right trapezius muscle under ultrasound guidance. Dane Arroyo MD [address] , [address], [place], [address], [facility] 12/09/2019 11:16:30 12/25/2019 text/html She is here for a follow up after trigger point injections and reports good pain benefit. She states overall she is moving her neck better. She still has some achiness but is overall feeling better. She has no radiating arm pain. 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 Dane Arroyo MD [address] [facility] , [address], [place], [address], [facility] - [facility] 12/26/2019 10:09:40 04/01/2020 text/html She is here for a repeat trigger point steroid injection in right trapezius muscle under ultrasound guidance. Dane Arroyo MD [address] [facility] , [address], [place], [address], [facility] - [facility] 04/01/2020 15:35:40 04/21/2020 text/html She is here for a repeat trigger point steroid injection in right trapezius muscle under ultrasound guidance. Dane Arroyo MD [address] [facility] , [address], [place], [address], [facility] - [facility] 04/22/2020 15:44:33 OBGyn Episode No OBEpisode recorded.
[2024-12-13 19:12] LABS: Troponin-I High Sensitivity 8.8 ng/L (<3.5-17.0)
[2024-12-13] MEDS: hydrALAZINE HCl 20 MG/ML VIAL 5 MG IVPUSH (19:32)
== END 2024-12-13 20:37 | disposition home or self-care (01) ==
PROVIDERS: Physician Assistant Medical; Emergency Provider Emergency Medicine; PCP Internal Medicine
DX: I10 Essential (primary) hypertension (principal); R51.9 Headache, unspecified; Z03.818 Encounter for observation for suspected exposure to other biological agents ruled out; R29.700 NIHSS score 0; M05.9 Rheumatoid arthritis with rheumatoid factor, unspecified; Z79.899 Other long term (current) drug therapy; Z79.52 Long term (current) use of systemic steroids
CPT/HCPCS: 0241U; 36415; 70450; 71046; 80053; 83735; 84484; 85025; 93005; 99284; J0360

== ENCOUNTER → 2024-12-13 11:53 | Outpatient (BNV) | payer OTHER, SELFPAY | PROVIDERS: Emergency Provider Emergency Medicine; PCP Internal Medicine; Visit Provider Internal Medicine | DX: I10 Essential (primary) hypertension (principal) | CPT/HCPCS: 93010 ==

== ENCOUNTER → 2024-12-13 11:53 | Outpatient (BNV) | payer OTHER, SELFPAY | PROVIDERS: PCP Internal Medicine; Visit Provider Radiology Diagnostic Radiology | DX: R51.9 Headache, unspecified (principal); I10 Essential (primary) hypertension | CPT/HCPCS: 70450; 71046 ==

== ENCOUNTER → 2025-02-17 09:00 | Outpatient (BNV) | payer OTHER, SELFPAY | PROVIDERS: Absent Provider Obstetrics & Gynecology; PCP Internal Medicine; Visit Provider Internal Medicine | DX: N64.59 Other signs and symptoms in breast (principal) | CPT/HCPCS: 76642; 77061; 77066 ==

== ENCOUNTER 2025-02-17 09:03 | Outpatient (REF) | payer OTHER, SELFPAY ==
--- NOTE | ~2025-02-17 | US_ITS ---
EXAMINATION: MM DIAGNOSTIC DIGITAL BREAST TOMOSYNTHESIS, BILATERAL Limited left breast ultrasound. CLINICAL INFORMATION: Left nipple skin discoloration. No palpable lump. Patient states the area of darker skin discoloration near the nipple is getting smaller. COMPARISON: Mammography: Comparison is made with relevant prior exams. TECHNIQUE: Digital breast mammography with tomosynthesis is performed in both the craniocaudal and mediolateral oblique views along with computer-aided detection (CAD). FINDINGS: There are scattered areas of fibroglandular density (ACR BI-RADS breast composition Category b). Triangular marker at the left nipple without underlying abnormality. There are no significant masses, abnormal calcifications, or other abnormalities. Targeted color Doppler ultrasound scanning in the left breast in the area the patient's skin discoloration in the retroareolar region lower inner quadrant demonstrates normal fibronodular breast tissue. There is no sonographic abnormality. Results are provided to the patient at time of visit by the technologist. US/US breast LT limited mamm only IMPRESSION: No mammographic or sonographic abnormality to account for the patient's skin discoloration. Recommend clinical evaluation follow-up. Recommend breast surgical consultation for further evaluation if skin discoloration persists or increases. ASSESSMENT: BI-RADS BI-RADS 1 - Negative RECOMMENDATION: 1. Patient should be managed based on the clinical impression. 2. Otherwise, routine annual screening mammography. This patient's information was entered into a reminder system with a target due date for their next mammogram. Electronically signed by: Prema Del Rosario DO 02/17/2025 10:00 AM EDT
--- OUTSIDE RECORDS SUMMARY | 2025-02-17 09:38 | XMS_ITS | Data Portability ---
Author Organization [facility] Address [address] [place] [address] Assessment Encounter Date Assessment Date Assessment LastModified [...] Recorded Time Degeneration of cervical intervertebral disc [id number] Nadeen mccarty MD [address] [facility] , [address], [place], [address], [place] - [facility] 0 15:23:29 Muscle pain 56932031 Nadeen mccarty MD [address] , [address], [place], [address], [place] [facility] 0 15:23:39 Cervical radiculopathy 90917267 Nadeen mccarty MD [address] , [address], [place], [address], [place] [facility] 0 15:32:48 Problem Notes None recorded. Procedures Surgical History Date Name Laterality Status Provider Name and Address Organization Details Recorded Time 0 Trigger Point Injections under ultrasound guidance completed Dane Arroyo MD [address] [facility] , [address], [place], [address], [place] - [facility] 04/21/2020 14:26:48 0 Trigger Point Injections under ultrasound guidance completed Dane Arroyo MD [address] [facility] , [address], [place], [address], [place] - [facility] 04/01/2020 15:18:06 0 Trigger Point Injections under ultrasound guidance completed Dane Arroyo MD [address] [facility] , [address], [place], [address], [place] [facility] 12/08/2019 16:03:55 0 Trigger Point Injections under ultrasound guidance completed Dane Arroyo MD [address] [facility] , [address], [place], [address], [place] - [facility] 11/24/2019 15:37:48 Imaging Results None recorded. Procedure Notes None recorded. Medical Equipment None Reported. Allergies Allergen ID Allergen Name Allergen Category Reaction Reaction Severity Criticality Documentation Date Start Date Code Code System Note Provider Name and Address Organization Details Recorded Time 17959 latex environme nt,medica tion Not available Not available Not available 11/13/2019 44169 91 RxNorm Belia tillman, [place] - [place] [...] % 126 mm[Hg] 75 mm[Hg] Margot Florez [place] - Pain Management 0 15:20:31 Date Recorded Body height Heart rate Oxygen saturation Oxygen saturation in Arterial blood by Pulse oximetry Systolic blood pressure Diastolic blood pressure Provider Name and Address Organization Details Last Updated DateTime 0 167.64 cm 102 /min 98 % 98 % 134 mm[Hg] 83 mm[Hg] Margot Florez [place] - Pain Management 0 15:03:48 Date Recorded Body height Heart rate Oxygen saturation Oxygen saturation in Arterial blood by Pulse oximetry Pain severity - 0-10 verbal numeric rating [Score] - Reported Systolic blood pressure Diastolic blood pressure Provider Name and Address Organization Details Last Updated DateTime 0 167.64 cm 94 /min 98 % 98 % 2 123 mm[Hg] 78 mm[Hg] Dane mccarty MD [address] [facility] , [address], [facility] [place], [address] [place] - Pain Management 0 15:29:53 Date Recorded Body height Heart rate Oxygen saturation Oxygen saturation in Arterial blood by Pulse oximetry Pain severity - 0-10 verbal numeric rating [Score] - Reported Systolic blood pressure Diastolic blood pressure Provider Name and Address Organization Details Last Updated DateTime 0 167.64 cm 81 /min 99 % 99 % 10 126 mm[Hg] 95 mm[Hg] Dane mccaryt MD [address] , [address], [facility], [address], [place] - [facility] 0 13:44:32 Date Recorded Body height Heart rate Oxygen saturation Oxygen saturation in Arterial blood by Pulse oximetry Pain severity - 0-10 verbal numeric rating [Score] - Reported Body mass index (BMI) Body weight Systolic blood pressure Diastolic blood pressure Provider Name and Address Organization Details Last Updated DateTime 0 167.64 cm 90 /min 98 % 98 % 3 26.6 kg/m2 86374.7 4 g 119 mm[Hg] 77 mm[Hg] Dane mccarty MD [address] , [address], [facility] [place] [place], [address], [place] - [facility] 0 14:25:25 Social History Question Answer Notes LastModified by Organizat ion Details LastModified Time Tobacco Smoking Status Former Smoker Not Available [facility] 08/06/2020 03:16:10 What Is Your Level Of Alcohol Consumption? Occasional [id number] Information not available 08/06/2020 Are You Currently Employed? Yes [id number] Information not available 08/06/2020 Which Illicit Or Recreational Drugs Have You Used? None [id number] Information not available 08/06/2020 Do You Or Have You Ever Used E-cigarettes Or Vape? 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 [id number] Information not available 08/06/2020 [email or web address] Informat[place] not available 11/13/2019 Sex: Unknown [...] SNOMED-CT Code Diagnosis ICD10 Code Diagnosis Note [id number] Dane Arroyo MD PAIN OFFICE [address] [facility] [place] [address] 11/13/2019 13:02:16 11/14/2019 15:38:58 Degeneration of cervical intervertebral disc 80215486 M50.30 Muscle pain 32536166 M79 .10 Cervical radiculopathy 18523182 M54.12 81196 Dane Arroyo MD PAIN OFFICE [address] [facility] [place] [place] [address] 11/24/2019 15:13:24 11/24/2019 15:40:23 Degeneration of cervical intervertebral disc 64602700 M50.30 Muscle pain 64798935 M79 .10 Cervical radiculopathy 74040853 M54.12 05395 Dane Arroyo MD [facility] PAIN OFFICE [address] [facility] [place] [address] 12/08/2019 14:50:07 12/08/2019 16:05:50 Degeneration of cervical intervertebral disc 64369917 M50.30 Muscle pain 73034117 M79 .10 Cervical radiculopathy 83353884 M54.12 58675 Dane Arroyo MD SV PAIN OFFICE [address] [facility] [place] [address] 12/25/2019 15:28:34 12/25/2019 17:12:08 Degeneration of cervical intervertebral disc 75141736 M50.30 Muscle pain 59842898 M79 .10 Cervical radiculopathy 68928863 M54.12 70195 Dane Arroyo MD SV PAIN OFFICE [address] [facility] [place] [place] [address] 04/01/2020 13:36:40 04/01/2020 15:19:58 Degeneration of cervical intervertebral disc 15738167 M50.30 Muscle pain 59065573 M79 .10 Cervical radiculopathy 45049721 M54.12 01336 Dane Arroyo MD PAIN OFFICE [address] [facility] [place] [place] [address] 04/21/2020 13:53:16 04/22/2020 09:27:06 Degeneration of cervical intervertebral disc 68012923 M50.30 Muscle pain 86065172 M79 .10 Cervical radiculopathy 47772076 M54.12 Health Concerns Section Related Observation LastModified by Organization Detai ls LastModified Time None Recorded Concern Status LastModified by Organization Details LastModified Time None Recorded Advance Directives Directive None Recorded Payers Encounter Date Sequence Insurance Name Policy Number Policy Ortega Covered Member ID Ortega Member ID Guarantor Name 11/24/2019 1 [facility] [id number] Charmian Gray [id number] Charmian Gray 11/24/2019 2 () Charmian Gray [id number] Charmian Gray 12/08/2019 1 [facility] [id number] Charmian Gray [id number] Charmian Gray 12/08/2019 2 () Charmian Gray [id number] Charmian Gray 12/25/2019 1 [facility] [id number] Charmian Gray [id number] Charmian Gray 12/25/2019 2 () Charmian Gray [id number] Charmian Gray 04/01/2020 1 [facility] [id number] Charmian Gray [id number] Charmian Gray 04/01/2020 2 () Charmian Gray [id number] Charmian Gray 04/21/2020 1 [facility] [id number] Charmian Gray [id number] Charmian Gray 04/21/2020 2 () Charmian Gray [id number] Charmian Gray Notes Date Note Type Note Provider Name and Address Organization Details Recorded Time 11/24/2019 text/html She is here for a trial of trigger point steroid injection in right trapezius muscle under ultrasound guidance. Dane Arroyo MD [address] , [address], [place], [address], [facility] - Pain Management 11/24/2019 16:03:07 12/08/2019 text/html She is here for a repeat trigger point steroid injection in right trapezius muscle under ultrasound guidance. Dane Arroyo MD [address] [facility] , [address], [place], [address], [facility] - Pain Management 12/09/2019 11:16:30 12/25/2019 text/html She is here for a follow up after trigger point injections and reports good pain benefit. She states overall she is moving her neck better. She still has some achiness but is overall feeling better. She has no radiating arm pain. She has no history of bladder or bowel incontinence.She is seeing a new stone paver at [place], [place]. Dane Arroyo MD [address] [facility] , [address], [place], [address], [facility] - Pain Management 12/26/2019 10:09:40 04/01/2020 text/html She is here for a repeat trigger point steroid injection in right trapezius muscle under ultrasound guidance. Dane Arroyo MD [address] [facility] , [address], [place], [address], [facility] - Pain Management 04/01/2020 15:35:40 04/21/2020 text/html She is here for a repeat trigger point steroid injection in right trapezius muscle under ultrasound guidance. Dane Arroyo MD [address] [facility] , [address], [place], [address], [facility] - Pain Management 04/22/2020 15:44:33 OBGyn Episode No OBEpisode recorded.
== END 2025-02-17 09:04 | disposition home or self-care (01) ==
LOC: HO.MAMMO 09:03
PROVIDERS: Absent Provider Obstetrics & Gynecology; PCP Internal Medicine; Visit Provider Internal Medicine
DX: N64.59 Other signs and symptoms in breast (principal)
CPT/HCPCS: 76642; 77062; 77066

== ENCOUNTER 2025-03-21 13:04 | Outpatient (REF) | payer BC, OTHER, SELFPAY ==
--- OUTSIDE RECORDS SUMMARY | 2025-03-21 13:08 | XMS_ITS | Data Portability ---
Author Organization [facility] Address [address] [facility] [place] [address] Assessment Encounter Date Assessment Date Assessment LastModified [...] Recorded Time Degeneration of cervical intervertebral disc 50496056 Nadeen mccarty MD [address] [facility] , [address], [place], [address], [place] [facility] 0 15:23:29 Muscle pain 34035858 Nadeen mccarty MD [address] , [address], [place], [address], [place] [facility] 0 15:23:39 Cervical radiculopathy 85696201 Nadeen mccarty MD [address] , [address], [place], [address], [place] [facility] 0 15:32:48 Problem Notes None recorded. Procedures Surgical History Date Name Laterality Status Provider Name and Address Organization Details Recorded Time 0 Trigger Point Injections under ultrasound guidance completed Dane Arroyo MD [address] [facility] , [address], [place], [address], [place] - [facility] 04/21/2020 14:26:48 0 Trigger Point Injections under ultrasound guidance completed Dane Arroyo MD [address] [facility] , [address], [place], [address], [place] - [facility] 04/01/2020 15:18:06 0 Trigger Point Injections under ultrasound guidance completed Dane Arroyo MD [address] [facility] , [address], [place], [address], [place] - [facility] 12/08/2019 16:03:55 0 Trigger Point Injections under ultrasound guidance completed Dane Arroyo MD [address] [facility] , [address], [place], [address], [place] - [facility] 11/24/2019 15:37:48 Imaging Results None recorded. Procedure Notes None recorded. Medical Equipment None Reported. Allergies Allergen ID Allergen Name Allergen Category Reaction Reaction Severity Criticality Documentation Date Start Date Code Code System Note Provider Name and Address Organization Details Recorded Time 67388 latex environme nt,medica tion Not available Not available Not available 11/13/2019 62591 91 RxNorm Belia tillman, [place] - [place] [...] mm[Hg] 78 mm[Hg] Dane mccarty MD [address] , [address], [place], [address], [place] - [facility] 0 15:29:53 Date Recorded Body height Heart rate Oxygen saturation Oxygen saturation in Arterial blood by Pulse oximetry Systolic blood pressure Diastolic blood pressure Provider Name and Address Organization Details Last Updated DateTime 0 167.64 cm 81 /min 99 % 99 % 126 mm[Hg] 95 mm[Hg] Dane mccarty MD [address] , [address], [place], [address], [place] - [facility] 0 13:44:32 Date Recorded Body height Heart rate Oxygen saturation Oxygen saturation in Arterial blood by Pulse oximetry Body mass index (BMI) Body weight Systolic blood pressure Diastolic blood pressure Provider Name and Address Organization Details Last Updated DateTime 0 167.64 cm 90 /min 98 % 98 % 26.6 kg/m2 16734.7 4 g 119 mm[Hg] 77 mm[Hg] Dane mccarty MD [address] , [address], [place], [address], [place] - [facility] 0 14:25:25 Social History Question Answer Notes LastModified by Organizat ion Details LastModified Time Tobacco Smoking Status Former Smoker Not Available [facility] 08/06/2020 03:16:10 Which Illicit Or Recreational Drugs Have You Used? None [id number] Information not available 08/06/2020 Education 4 Year College [employer] Information not available 11/13/2019 Marital Status [email or web address] [employer] not available 11/13/2019 Sex: Unknown Functional Status Question Answer Note LastModified by Organizat ion Details LastModified Time What is your level of alcohol consumption? Occasional [id number] Information not available 08/06/2020 Are you currently employed? 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 Current user of electronic cigarettes occassional [id number] Information not available 08/06/2020 Mental Status None recorded. Family History Nothing Reported. Medical History Condition Response Coronary Artery Disease N Gout Y Neuropathy/Neuralgia N Kidney Stones N Hyperthyroidism N Depression Y COPD N Hypothyroidism N Hepatitis C N Migrane Y Anxiety Disorder Y Diabetes N Seizures/Epilepsy N Arthritis Y Hyperlipidemia N Cancer N Stroke N Asthma [...] SNOMED-CT Code Diagnosis ICD10 Code Diagnosis Note 76104 Dane Arroyo MD [facility] PAIN OFFICE [address] [place] [address] 11/13/2019 13:02:16 11/14/2019 15:38:58 Degeneration of cervical intervertebral disc 69811429 M50.30 Muscle pain 41000768 M79 .10 Cervical radiculopathy 33924425 M54.12 78752 Dane Arroyo MD [facility] PAIN OFFICE [address] [place] [address] 11/24/2019 15:13:24 11/24/2019 15:40:23 Degeneration of cervical intervertebral disc 86794587 M50.30 Muscle pain 66651552 M79 .10 Cervical radiculopathy 20008002 M54.12 63786 Dane Arroyo MD PAIN OFFICE [address] [facility] [place] [address] 12/08/2019 14:50:07 12/08/2019 16:05:50 Degeneration of cervical intervertebral disc 23648774 M50.30 Muscle pain 98784926 M79 .10 Cervical radiculopathy 58073997 M54.12 69940 Dane Arroyo MD PAIN OFFICE [address] [facility] [place] [address] 12/25/2019 15:28:34 12/25/2019 17:12:08 Degeneration of cervical intervertebral disc 40474524 M50.30 Muscle pain 24990026 M79 .10 Cervical radiculopathy 30171040 M54.12 49772 Dane Arroyo MD SV PAIN OFFICE [address] [place] [address] 04/01/2020 13:36:40 04/01/2020 15:19:58 Degeneration of cervical intervertebral disc 28981306 M50.30 Muscle pain 14394666 M79 .10 Cervical radiculopathy 34652748 M54.12 94451 Dane Arroyo MD SV PAIN OFFICE [address] [place] [address] 04/21/2020 13:53:16 04/22/2020 09:27:06 Degeneration of cervical intervertebral disc 17276121 M50.30 Muscle pain 58954645 M79 .10 Cervical radiculopathy 58965376 M54.12 Health Concerns Section Related Observation LastModified by Organization Detai ls LastModified Time None Recorded Concern Status LastModified by Organization Details LastModified Time None Recorded Advance Directives Directive None Recorded Payers Encounter Date Sequence Insurance Name Policy Number Policy Ortega Covered Member ID Ortega Member ID Guarantor Name 11/24/2019 1 [facility] [id number] Charmian Gray [id number] Charmian Gray 11/24/2019 2 () Charmian Gray [id number] Charmian Gray 12/08/2019 1 [facility] [id number] Charmian Gray [id number] Charmian Gray 12/08/2019 2 () Charmian Gray [id number] Charmian Gray 12/25/2019 1 [facility] [id number] Charmian Gray [id number] Charmian Gray 12/25/2019 2 () Charmian Gray [id number] Charmian Gray 04/01/2020 1 [facility] [id number] Charmian Gray [id number] Charmian Gray 04/01/2020 2 () Charmian Gray [id number] Charmian Gray 04/21/2020 1 [facility] [id number] Charmian Gray [id number] Charmian Gray 04/21/2020 2 () Charmian Gray [id number] Charmian Gray Notes Date Note Type Note Provider Name and Address Organization Details Recorded Time 11/24/2019 text/html She is here for a trial of trigger point steroid injection in right trapezius muscle under ultrasound guidance. Dane Arroyo MD [address] , [address], [place], [address], [facility] - [facility] Pain Management 11/24/2019 16:03:07 12/08/2019 text/html She is here for a repeat trigger point steroid injection in right trapezius muscle under ultrasound guidance. Dane Arroyo MD [address] , [address], [place], [address], [place] - [facility] 12/09/2019 11:16:30 12/25/2019 text/html She is here for a follow up after trigger point injections and reports good pain benefit. She states overall she is moving her neck better. She still has some achiness but is overall feeling better. She has no radiating arm pain. She has no history of bladder or bowel incontinence.She is seeing a new manager water at [place], [place]. Dane Arroyo MD [address] [facility] , [address], [place], [address], [place] - [facility] 12/26/2019 10:09:40 04/01/2020 text/html She is here for a repeat trigger point steroid injection in right trapezius muscle under ultrasound guidance. Dane Arroyo MD [address] [facility] , [address], [place], [address], [place] - [facility] 04/01/2020 15:35:40 04/21/2020 text/html She is here for a repeat trigger point steroid injection in right trapezius muscle under ultrasound guidance. Dane Arroyo MD [address] [facility] [address], [place], [address], [place] [facility] 04/22/2020 15:44:33 OBGyn Episode No OBEpisode recorded.
[2025-03-21 15:20] LABS: MANUAL DIFF FLAG NO
[2025-03-21 15:22] LABS: Basophils Absolute Auto 0.1 X10*3/uL (0.0-0.2); Basophils Percent Auto 1.1 % (0-2); Eosinophils Absolute Auto 0.3 X10*3/uL (0.0-0.4); Eosinophils Percent Auto 4.8 % (0-4); Hemoglobin 12.4 g/dl (12.0-16.0); Imm Gran Abs Auto 0.09 X10*3/uL (0.00-0.03); Imm Gran Pct Auto 1.4 % (0.0-0.4); Lymphocytes Absolute Auto 2.5 X10*3/uL (1.2-4.9); Lymphocytes Percent Auto 40.5 % (20-40); Mean Corpuscular HGB Conc 32.6 g/dl (31.0-35.0); Mean Corpuscular Hemoglobin 30.2 pg (27.0-33.0); Mean Corpuscular Volume 92.5 fL (80.0-98.0); Mean Platelet Volume 9.5 fL (9.4-12.3); Monocytes Absolute Auto 0.4 X10*3/uL (0.1-1.2); Monocytes Percent Auto 6.4 % (2-11); Neutrophils Absolute Auto 2.9 x10*3/uL (2.0-8.3); Neutrophils Percent Auto 45.8 % (45-73); Platelet Count 351 X10*3/uL (160-400); Red Blood Count 4.11 X10*6/uL (4.20-5.50); Red Cell Distribution Width 11.9 % (11.0-16.0); White Blood Count 6.3 X10*3/uL (4.8-10.8)
[2025-03-21 15:32] LABS: Alanine Aminotransferase 26 U/L (0-31); Albumin Level 4.3 g/dL (3.5-5.0); Alkaline Phosphatase 101 U/L (39-117); Anion Gap 13 (12-20); Aspartate Amino Transferase 30 U/L (5-31); Bilirubin Total 0.7 mg/dL (0.0-1.0); Blood Urea Nitrogen 7 mg/dL (9-16); C Reactive Protein 0.13 mg/dL (< or = 0.50); Calcium 9.4 mg/dL (8.4-10.2); Carbon Dioxide 27 mmol/L (22-29); Chloride 107 mmol/L (96-108); Estimated Glomerular Filt Rate > 60; Glucose Random 92 mg/dL (60-115); Sodium 143 mmol/L (135-145); Total Protein 7.4 g/dL (6.5-8.0)
[2025-03-21 15:58] LABS: Erythrocyte Sedimentation Rate 16 MM/HR (0-20)
[2025-03-22 03:47] LABS: HBS Num1 1.36 mIU/mL (0-7.99); HBc Num1 0.11 S/CO (0.00-0.79); HBsAGNum1 0.33 S/CO (0.00-0.99); Hepatitis A Antibody IgM 0.12 Index (0-0.79); Hepatitis B Core Antibody Nonreactive (Nonreactive); Hepatitis B Surface Antigen Negative (Negative); ~HepC Num1 0.17 S/CO (0.00-0.79); ~Hepatitis A Antibody IgM Nonreactive (Nonreactive); ~Hepatitis B Surface Antibody NONREACTIVE (Nonreactive); ~Hepatitis C Antibody Nonreactive (Nonreactive)
== END 2025-03-21 13:05 | disposition home or self-care (01) ==
LOC: HO.HMGCLDS 13:04
PROVIDERS: PCP Internal Medicine; Visit Provider Student in an Organized Health Care Education/Training Program
DX: M05.9 Rheumatoid arthritis with rheumatoid factor, unspecified (principal)
CPT/HCPCS: 36415; 80053; 85025; 85652; 86140; 86704; 86706; 86709; 86803; 87340

== ENCOUNTER 2025-03-26 13:43 | Outpatient (AMB) | payer OTHER, SELFPAY ==
[2025-03-26 13:54] VITALS: BP 118/62; PULSE 76; O2SAT 96; BMI 27.1
--- NOTE | 2025-03-26 13:54 | A.OFFVIS_ITS ---
Vital Signs 03/26/25 13:54 Height 5 ft 6 in Weight 168 lb BMI 27.1 BP 118/62 Blood Pressure Location Lt brachial Position Sitting Pulse 76 Pulse Oximetry (%) 96 Oxygen Delivery Method Room Air Intake Visit Reasons: RA Intake Note: Patient presents today for follow up on RA. Allergies watermelon [WATERMELON] Allergy (Severe, Verified 03/26/25 13:58) HIVES/ASTHMA EXACERBATION latex [LATEX] Allergy (Intermediate, Verified 03/26/25 13:58) RASH/ASTHMA EXACERBATION cantaloupe Allergy (Verified 03/26/25 13:58) Hives grape Allergy (Verified 03/26/25 13:58) Hives nuts Allergy (Mild, Uncoded 03/26/25 13:58) Hives Medication List - Last Reconciled 03/26/25 by Jennifer Medrano MD acetaminophen ER (Tylenol Arthritis Pain) 1,300 mg PO Q12H PRN albuterol sulfate 90 mcg/actuation 2 puffs inhalation Q6H PRN amlodipine 2.5 mg PO DAILY atenolol 100 mg PO DAILY atorvastatin 40 mg PO DAILY cetirizine (Zyrtec) 10 mg PO DAILY duloxetine 60 mg PO DAILY lactobacillus combination no.8 (Adult Probiotic) 3,000 mmu cells PO DAILY leflunomide 20 mg PO DAILY multivitamin 1 tab PO DAILY multivitamin with minerals (Hair,Skin and Nails tablet) 1 tab PO DAILY HPI Comments Details: Patient is a 59-year-old female with hypertension, hyperlipidemia, depression, polyarticular osteoarthritis (knees, hands) and seropositive rheumatoid arthritis here today for follow up Interval History: Patient last seen 11/21/[address] Mcnulty. At that time she was following up for her seropositive rheumatoid arthritis on leflunomide monotherapy 20 mg. She was doing well reporting she has flares of her joints especially with overuse but has been doing well. No changes were made to her medication. Patient continues to do well. Does note that after a day of excess movement she is sore the following day No prolonged morning stiffness Rheumatologic History: ++RF++CCP dx at age 20 Plaquenil, gold, prednisone, Enbrel, Humira-dates unknown Methotrexate-05/2020-01/2021- stopped due to hair loss/GI upset Leflunomide 10 mg- 01/2021-04/2021 -active disease on exam Leflunomide 20 mg -04/2021- present effective Current Rheumatology Medication(s): Leflunomide 20 mg daily [facility] Medical History (Updated 03/26/25 @ 14:28 by Jennifer Medrano MD) Gallstone Family history of abdominal aortic aneurysm Chest pain Hypertension Left ankle effusion Seropositive rheumatoid arthritis Surgical History History of tonsillectomy Family History Father HTN (hypertension) Mother HTN (hypertension) Diabetes Social History Alcohol intake: current Alcohol intake frequency: holidays/special occasions only Alcohol type: wine Patient Tobacco Use Status: Never used Tobacco e-Cigarette/Vaping Use: Never Used Female Reproductive History Menstrual Age of Menarche: 12 Review of Systems Const Details: Review of Systems Constitutional: Denies fever, chills, weight loss ENT: Denies vision changes, eye pain or eye redness, dental caries, dry mouth GI: Denies nausea, vomiting, diarrhea, abdominal pain, change in BM Pulm: Denies SOB, IBARRA, hemoptysis, wheezing Cards: Denies chest pain, palpitations Skin: Denies Raynaud's, rash, nail changes, photosensitivity, 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 Well appearing and in no apparent painful distress HEENT Conjunctiva and sclera clear. ?Pupils equal round and reactive to light. ?No lymphadenopathy. ? CHEST/RESPIRATORY SYSTEM Normal respiratory effort and able to speak in complete sentences. ?Clear to auscultation bilaterally. ?No crackles, rales, rhonchi, wheezes heard. CARDIAC SYSTEM Regular rate and rhythm. ?S1 and S2 heard no murmurs. ?Radial pulses intact bilaterally MSK Hands: ?Able to make a fist. No synovitis noted to the MCPs, PIPs or DIPs. ?No tenderness to palpation of these joints. No deformities noted. ? Wrists: ?Full range of motion at the wrists without pain. ?No tenderness to palpation or synovitis noted to the wrists. Elbows: Full range of motion without pain. No tenderness, weakness, swelling, increased warmth or erythema. Shoulders: Full range of active range of motion without pain. No tenderness, weakness, swelling, increased warmth or erythema. Knees: ?Full range of motion. ?No tenderness, swelling, increased warmth or erythema.?Crepitations felt Ankles: Able to flex and extend ankles at the tibiotalar joint however there is no movement or motion at the subtalar joint. Unable to june or invert the ankle joint bilaterally. No evidence of synovitis Feet: ?Negative squeeze test. ?No tenderness to palpation or swelling of the MTPs. Tender points:?No tenderness to palpation of the bilateral trapezius, supraspinatus, greater trochanters, anterior costochondral junctions, bilateral gluteal areas, bilateral suboccipital muscle insertions SKIN Skin intact without rashes. Results Reviewed Results Reviewed: Laboratory Tests 03/21/25 13:16 WBC 6.3 RBC 4.11 L Hgb 12.4 Hct 38.0 Plt Count 351 ESR 16 Sodium 143 Potassium 4.0 Chloride 107 Carbon Dioxide 27 BUN 7 L Creatinine 0.67 AST 30 ALT 26 Alkaline Phosphatase 101 C-Reactive Protein 0.13 Total Protein 7.4 Albumin 4.3 Laboratory Tests 03/21/25 13:16 Hepatitis A IgM Ab Nonreactive Hep Bs Antigen Negative Hep Bs Antibody NONREACTIVE Hep B Core Total Ab Nonreactive Hepatitis C Ab (EIA) Nonreactive Rheumatology labs 05/14/20 11:55 Cycl Citrul Peptide IgG 139 H FOREIGN Screen Negative Assessment & Plan Assessment & Plan (1) Seropositive rheumatoid arthritis: Comment: ++RF++CCP dx at age 20 Plaquenil, gold, prednisone, Enbrel, Humira-dates unknown Methotrexate-05/2020-01/2021- stopped due to hair loss/GI upset Leflunomide 10 mg- 01/2021-04/2021 -active disease on exam Leflunomide 20 mg -04/2021- present effective Code(s): M05.9 - Rheumatoid arthritis with rheumatoid factor, unspecified Category: Medical Plan: #Seropositive RA Patient is a 59 y.o. female with longstanding seropositive rheumatoid arthritis complicated by polyarticular osteoarthritis with bilateral ankle fusion here today for follow up. Currently on leflunomide monotherapy and in clinical remission. 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 ?Has a very long half-life. ?Needs c holestyramine washout if there is desire for Initiation: ?CBC, BMP, LFTs, hepatitis-B and C serologies every 2-4 weeks for 3 months Monitoring: ?CBC, BMP, LFTs, hepatitis B and C serologies Plan I spent 30 minutes reviewing the record and labs, taking a history, examining the patient, discussing the treatment plan, ordering diagnostic work up and documenting in the medical record Orders: Orders Complete Blood Count Auto Diff 6 Months M05.9 - Rheumatoid arthritis with rheumatoid factor, unspecified C Reactive Protein 6 Months M05.9 - Rheumatoid arthritis with rheumatoid factor, unspecified Erythrocyte Sedimentation Rate 6 Months M05.9 - Rheumatoid arthritis with rheumatoid factor, unspecified Comprehensive Met. Panel 6 Months M05.9 - Rheumatoid arthritis with rheumatoid factor, unspecified Medications: New leflunomide 10 mg PO DAILY 90 tabs 1RF M05.9 - Rheumatoid arthritis with rheumatoid factor, unspecified Discontinued leflunomide Discontinued Reason: Doctor's Order 20 mg PO DAILY 90 tabs 1RF M05.9 - Rheumatoid arthritis with rheumatoid factor, unspecified Coding Level of Care Code Est Pt Level 4 (54159) Complex EM visit Add On G2211 Diagnoses Seropositive rheumatoid arthritis M05.9 Encounter for monitoring leflunomide therapy Z51.81; Z79.69
--- OUTSIDE RECORDS SUMMARY | 2025-03-26 16:14 | XMS_ITS | Data Portability ---
Author Organization [facility] Address [address] [place] [address] Assessment Encounter Date Assessment Date Assessment LastModified [...] Recorded Time Degeneration of cervical intervertebral disc [id number] Nadeen mccarty MD [address] [facility] , [address], [place], [address], [place] [facility] 0 15:23:29 Muscle pain [id number] Nadeen mccarty MD [address] , [address], [place], [address], [place] [facility] 0 15:23:39 Cervical radiculopathy 86791523 Nadeen mccarty MD [address] , [address], [place], [address], [place] [facility] 0 15:32:48 Problem Notes None recorded. Procedures Surgical History Date Name Laterality Status Provider Name and Address Organization Details Recorded Time 0 Trigger Point Injections under ultrasound guidance completed Dane Arroyo MD [address] [facility] [facility] [address], [place], [address], [place] [facility] 04/21/2020 14:26:48 0 Trigger Point Injections under ultrasound guidance completed Dane Arroyo MD [address] [address] , [address], [place], [address], [place] [facility] 04/01/2020 15:18:06 0 Trigger Point Injections under ultrasound guidance completed Dane Arroyo MD [address] [facility] [address], [place], [address], [place] [facility] 12/08/2019 16:03:55 0 Trigger Point Injections under ultrasound guidance completed Dane Arroyo MD [address] [facility] , [address], [place], [address], [place] [facility] 11/24/2019 15:37:48 Imaging Results None recorded. Procedure Notes None recorded. Medical Equipment None Reported. Allergies Allergen ID Allergen Name Allergen Category Reaction Reaction Severity Criticality Documentation Date Start Date Code Code System Note Provider Name and Address Organization Details Recorded Time 36833 latex environme nt,medica tion Not available Not available Not available 11/13/2019 17619 91 RxNorm Belia tillman, [place] [...] mm[Hg] 78 mm[Hg] Dane mccarty MD [address] , [address], [place], [address], [place] [facility] 0 15:29:53 Date Recorded Body height Heart rate Oxygen saturation Oxygen saturation in Arterial blood by Pulse oximetry Systolic blood pressure Diastolic blood pressure Provider Name and Address Organization Details Last Updated DateTime 0 167.64 cm 81 /min 99 % 99 % 126 mm[Hg] 95 mm[Hg] Dane mccarty MD [address] , [address], [place], [address], [place] [facility] 0 13:44:32 Date Recorded Body height Heart rate Oxygen saturation Oxygen saturation in Arterial blood by Pulse oximetry Body mass index (BMI) Body weight Systolic blood pressure Diastolic blood pressure Provider Name and Address Organization Details Last Updated DateTime 0 167.64 cm 90 /min 98 % 98 % 26.6 kg/m2 45593.7 4 g 119 mm[Hg] 77 mm[Hg] Dane mccarty MD [address] , [address], [place], [address], [place] [facility] 0 14:25:25 Social History Question Answer Notes LastModified by Organizat ion Details LastModified Time Tobacco Smoking Status Former Smoker Not Available [facility] 08/06/2020 03:16:10 Which Illicit Or Recreational Drugs Have You Used? None [id number] Information not available 08/06/2020 Education 4 Year College [employer] Information not available 11/13/2019 Marital Status [email or web address] [employer] not available 11/13/2019 Sex: Unknown Functional Status Question Answer Note LastModified by Organizat ion Details LastModified Time What is your level of alcohol consumption? Occasional [id number] Information not available 08/06/2020 Are you currently employed? 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 Current user of electronic cigarettes occassional [id number] Information not available 08/06/2020 Mental Status None [...] SNOMED-CT Code Diagnosis ICD10 Code Diagnosis Note [id number] Dane Arroyo MD [facility] [address] [employer] [address] [place] [address] 11/13/2019 13:02:16 11/14/2019 15:38:58 Degeneration of cervical intervertebral disc 53647586 M50.30 Muscle pain 14883665 M79 .10 Cervical radiculopathy 57513524 M54.12 [id number] Dane Arroyo MD [facility] [address] [employer] [address] [employer] [address] [place] [address] 11/24/2019 15:13:24 11/24/2019 15:40:23 Degeneration of cervical intervertebral disc 95003337 M50.30 Muscle pain 84325552 M79 .10 Cervical radiculopathy 25340631 M54.12 [id number] Dane Arroyo MD PAIN OFFICE [address] [employer] [facility] [place] [address] 12/08/2019 14:50:07 12/08/2019 16:05:50 Degeneration of cervical intervertebral disc 65141735 M50.30 Muscle pain 24519249 M79 .10 Cervical radiculopathy 94506003 M54.12 [id number] Dane Arroyo MD PAIN OFFICE [address] [facility] [place] [place] [address] 12/25/2019 15:28:34 12/25/2019 17:12:08 Degeneration of cervical intervertebral disc 80412409 M50.30 Muscle pain 90993685 M79 .10 Cervical radiculopathy 09306220 M54.12 [id number] Dane Arroyo MD [facility] [address] [employer] [place] [address] 04/01/2020 13:36:40 04/01/2020 15:19:58 Degeneration of cervical intervertebral disc 31794546 M50.30 Muscle pain 52808280 M79 .10 Cervical radiculopathy 77369504 M54.12 10301 Dane Arroyo MD [facility] [address] [place] [address] 04/21/2020 13:53:16 04/22/2020 09:27:06 Degeneration of cervical intervertebral disc 95796089 M50.30 Muscle pain 88072389 M79 .10 Cervical radiculopathy 48194541 M54.12 Health Concerns Section Related Observation LastModified by Organization Detai ls LastModified Time None Recorded Concern Status LastModified by Organization Details LastModified Time None Recorded Advance Directives Directive None Recorded Payers Encounter Date Sequence Insurance Name Policy Number Policy Ortega Covered Member ID Ortega Member ID Guarantor Name 11/24/2019 1 [facility] [id number] Charmian Gray [id number] Charmian Gray 11/24/2019 2 () Charmian Gray [id number] Charmian Gray 12/08/2019 1 [facility] [id number] Charmian Gray [id number] Charmian Gray 12/08/2019 2 () Charmian Gray [id number] Charmian Gray 12/25/2019 1 [facility] [id number] Charmian Gray [id number] Charmian Gray 12/25/2019 2 () Charmian Gray [id number] Charmian Gray 04/01/2020 1 [facility] [id number] Charmian Gray [id number] Charmian Gray 04/01/2020 2 () Charmian Gray [id number] Charmian Gray 04/21/2020 1 [facility] [id number] Charmian Gray [id number] Charmian Gray 04/21/2020 2 () Charmian Gray [id number] Charmian Gray Notes Date Note Type Note Provider Name and Address Organization Details Recorded Time 11/24/2019 text/html She is here for a trial of trigger point steroid injection in right trapezius muscle under ultrasound guidance. Dane Arroyo MD [address] , [address], [place], [address], [facility] 11/24/2019 16:03:07 12/08/2019 text/html She is here for a repeat trigger point steroid injection in right trapezius muscle under ultrasound guidance. 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 Dane Arroyo MD [address] [facility] , [address], [place], [address], [place] [facility] 12/26/2019 10:09:40 04/01/2020 text/html She is here for a repeat trigger point steroid injection in right trapezius muscle under ultrasound guidance. Dane Arroyo MD [address] [facility] , [address], [place], [address], [place] [facility] 04/01/2020 15:35:40 04/21/2020 text/html She is here for a repeat trigger point steroid injection in right trapezius muscle under ultrasound guidance. Dane Arroyo MD [address] [facility], [place], [address], [place] [facility] 04/22/2020 15:44:33 OBGyn Episode No OBEpisode recorded.
== END 2025-03-26 14:44 | disposition home or self-care (01) ==
LOC: HO.RHE 13:44
PROVIDERS: PCP Internal Medicine; Visit Provider Student in an Organized Health Care Education/Training Program
DX: M05.79 Rheumatoid arthritis with rheumatoid factor of multiple sites without organ or systems involvement (principal); Z51.81 Encounter for therapeutic drug level monitoring; Z79.69 Long term (current) use of other immunomodulators and immunosuppressants
CPT/HCPCS: 99214

== ENCOUNTER → 2025-03-26 13:43 | Outpatient (BNVA) | payer OTHER, SELFPAY | PROVIDERS: PCP Internal Medicine; Visit Provider Student in an Organized Health Care Education/Training Program | DX: M05.9 Rheumatoid arthritis with rheumatoid factor, unspecified (principal); Z51.81 Encounter for therapeutic drug level monitoring; Z79.69 Long term (current) use of other immunomodulators and immunosuppressants | CPT/HCPCS: 99212 ==

== ENCOUNTER 2025-06-16 07:35 | Outpatient (REF) | payer OTHER, SELFPAY | END 2025-06-16 07:36 | disposition home or self-care (01) | LOC: HO.LNP 07:35 | PROVIDERS: PCP Internal Medicine; Visit Provider Obstetrics & Gynecology | DX: Z01.419 Encounter for gynecological examination (general) (routine) without abnormal findings (principal); Z11.51 Encounter for screening for human papillomavirus (HPV) | CPT/HCPCS: 87626; 88175 ==

== ENCOUNTER 2025-06-16 07:35 | Outpatient (AMB) | payer OTHER, SELFPAY ==
[2025-06-16 07:35] VITALS: BP 124/76; BMI 26.8
--- NOTE | 2025-06-16 07:35 | MHC.OFFVIS ---
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 No complaints. Last Pap/HPV was negative in 03/11 Last Mammogram was BI-RADS 1 in 02/12 Last Colonoscopy was negative in 04/08, the recommendation was to repeat in 10 years [facility] Medical History Gallstone Family history of abdominal aortic aneurysm Chest pain Hypertension Left ankle effusion Seropositive rheumatoid arthritis Surgical History History of tonsillectomy Family History Father HTN (hypertension) Mother HTN (hypertension) Diabetes Social History Alcohol intake: current Alcohol intake frequency: holidays/special occasions only Alcohol type: wine Patient Tobacco Use Status: Never used Tobacco e-Cigarette/Vaping Use: Never Used Female Reproductive History Menstrual Age of Menarche: 12 Date of last pap smear: 03/17/01 Date of Mammogram: 02/17/25 Review of Systems Const All systems reviewed & are unremarkable except as noted in HPI and below Card Reports as per HPI Resp Reports as per HPI GI Reports as per HPI and Reports no additional complaints Reports as per HPI Physical Exam Vital Signs: Last Vital Signs BP 124/76 06/16/25 07:35 BMI result Body Mass Index 26.8 Const General: cooperative, healthy appearing and comfortable Chest Chest palpation & inspection: normal inspection of the chest and normal palpation of entire chest wall Breast/axilla inspection: normal inspection of the breasts and normal inspection of the axillae Breast/axilla palpation: normal palpation of the breasts, normal palpation of the axillae and no axillary lymphadenopathy Resp Effort & Inspection: normal respiratory effort Auscultation: clear to auscultation bilaterally Percussion: percussion normal Cardio Palpation: normal PMI Rate: regular rate Rhythm: regular rhythm Heart sounds: no murmurs and no rubs Peripheral pulses: Peripheral pulses 2+ throughout GI Inspection: Yes normal to inspection Palpation (GI): Soft to palpation, nontender, no guarding, not rigid and No hepatosplenomegaly present Percussion: Yes normal to percussion Auscultation: normal bowel sounds Rectal Exam - Female: deferred General: Yes bladder normal to palpation External Female Exam: No lesion Speculum Exam - Vagina: normal appearance of the vagina, normal palpation, normal vaginal discharge and not erythematous Speculum Exam - Cervix: normal appearance of the cervix and normal palpation Bimanual exam- vagina & uterus: normal bimanual exam, normal palpation, uterine size normal, bladder normal to palpation, consistency normal and normal palpation Bimanual Exam- Adnexa, other: normal adnexae, no masses and no tenderness Assessment & Plan Assessment & Plan (1) Well woman exam: Code(s): Z01.419 - Encounter for gynecological examination (general) (routine) without abnormal findings Category: Medical Plan: Co testing done. Counseled the patient about the recommended dietary allowance of 1200 mg of Calcium & 600 IU of vitamin D. Instructions given to patient to schedule next screening Mammogram in 02/14. The patient was instructed to perform monthly self-breast exams and schedule annual exam in a year. All questions answered and the patient verbalized understanding. Coding Level of Care Code Est Pt Prev Care 40-64y(19537) Diagnoses Well woman exam Z01.419
== END 2025-06-16 08:06 | disposition home or self-care (01) ==
LOC: HO.HWS 07:35
PROVIDERS: PCP Internal Medicine; Visit Provider Obstetrics & Gynecology
DX: Z01.419 Encounter for gynecological examination (general) (routine) without abnormal findings (principal)
CPT/HCPCS: 99396; 99459

== ENCOUNTER 2025-09-25 07:51 | Outpatient (REF) | payer BC, OTHER, SELFPAY ==
[2025-09-25 08:40] LABS: Hematocrit 41.0 % (37.0-47.0); Hemoglobin 13.1 g/dl (12.0-16.0); Imm Gran Abs Auto 0.06 X10*3/uL (0.00-0.03); Imm Gran Pct Auto 1.1 % (0.0-0.4); Lymphocytes Absolute Auto 2.1 X10*3/uL (1.2-4.9); MANUAL DIFF FLAG NO; Mean Corpuscular HGB Conc 32.0 g/dl (31.0-35.0); Mean Corpuscular Hemoglobin 30.2 pg (27.0-33.0); Mean Corpuscular Volume 94.5 fL (80.0-98.0); NRBC Abs Auto 0.000 X10*3/uL (0.0-0.012); NRBC Pct Auto 0.0 /100WBC (0.0-0.2); Platelet Count 299 X10*3/uL (160-400); Red Blood Count 4.34 X10*6/uL (4.20-5.50); White Blood Count 5.5 X10*3/uL (4.8-10.8)
[2025-09-25 09:18] LABS: Alanine Aminotransferase 44 U/L (0-31); Albumin Level 4.6 g/dL (3.5-5.0); Alkaline Phosphatase 140 U/L (39-117); Anion Gap 11 (12-20); Aspartate Amino Transferase 40 U/L (5-31); Blood Urea Nitrogen 12 mg/dL (9-16); Calcium 9.4 mg/dL (8.4-10.2); Carbon Dioxide 27 mmol/L (22-29); Chloride 107 mmol/L (96-108); Estimated Glomerular Filt Rate > 60; Potassium 4.2 mmol/L (3.3-5.1); Sodium 141 mmol/L (135-145); Total Protein 7.7 g/dL (6.5-8.0)
[2025-09-25 09:28] LABS: Erythrocyte Sedimentation Rate 13 MM/HR (0-20)
== END 2025-09-25 07:52 | disposition home or self-care (01) ==
LOC: HO.LAB 07:51
PROVIDERS: PCP Internal Medicine; Visit Provider Student in an Organized Health Care Education/Training Program
DX: M05.9 Rheumatoid arthritis with rheumatoid factor, unspecified (principal)
CPT/HCPCS: 36415; 80053; 85025; 85652; 86140

== ENCOUNTER 2025-09-29 07:40 | Outpatient (REF) | payer OTHER, BC, SELFPAY ==
[2025-09-29 14:25] LABS: Alanine Aminotransferase 39 U/L (0-31); Aspartate Amino Transferase 39 U/L (5-31)
== END 2025-09-29 07:41 | disposition home or self-care (01) ==
LOC: HO.HKASLDS 07:40
PROVIDERS: PCP Internal Medicine; Visit Provider Student in an Organized Health Care Education/Training Program
DX: M05.9 Rheumatoid arthritis with rheumatoid factor, unspecified (principal); Z51.81 Encounter for therapeutic drug level monitoring; Z79.69 Long term (current) use of other immunomodulators and immunosuppressants; Z79.899 Other long term (current) drug therapy
CPT/HCPCS: 36415; 84450; 84460; 99212

== ENCOUNTER 2025-09-29 07:40 | Outpatient (AMB) | payer OTHER, SELFPAY ==
--- OUTSIDE RECORDS SUMMARY | 2024-10-07 06:00 | XMS_ITS ---
Author Organization [facility] Address [address] [place] [address] Care Team Providers Care Produce Specialist Name Role Phone MAYA HAHN Primary Care Provider [phone] REASON FOR VISIT 41/CPX Social History Sex Assigned At : Social History Observation Description Sex Assigned At Female Encounters Encounter Location Date Provider Diagnosis [facility] [address] [place] [address] 10/07/2024 MAYA HAHN Plan Of Treatment No Information Progress Notes * LORENZA SCHUMACHEROB: 7 (60 yo F)Acc No.[id number]:10/07/2024 Progress Notes Patient: SUMANTH PRAJAPATI Provider: Marla HAHN M.D. :1965 A ge:59 Y S ex:Female Date:10/07/2024 Address: [address] [place], [id number] Subjective: * Chief Complaints: * 4 1/CPX Billing Information: * Procedure Codes: * Electronic signature of MAYA HAHN MD on 09/29/2025 at 08:05 AM EST Sign off status: Pending * Provider: Marla HAHN M.D. Date: 12/08/2023 Generated for Printi ng/Faxing/eTransmitting on: 11/30/2024 08:05 AM EST
--- OUTSIDE RECORDS SUMMARY | 2024-12-18 06:00 | XMS_ITS ---
Author Organization [facility] Address [address] [place] [address] Care Team Providers Care Telegraph Inspector Name Role Phone MAYA HAHN Primary Care Provider REASON FOR VISIT 41/ ER follow up Social History Sex Assigned At : Social History Observation Description Sex Assigned At Female Encounters Encounter Location Date Provider Diagnosis [facility] [address] [place] [address] 12/18/2024 MAYA HAHN Plan Of Treatment No Information Progress Notes * LORENZA SCHUMACHEROB: 7 (60 yo F)Acc No.[id number]:12/18/2024 Progress Notes Patient: SUMANTH PRAJAPATI Provider: Marla HAHN M.D. :1965 A ge:59 Y S ex:Female Date:12/18/2024 Address: [address] [place], [place]-[address] Subjective: * Chief Complaints: * 4 1/ ER follow up * Electronic signature of MAYA HAHN MD on 09/29/2025 at 08:05 AM EST Sign off status: Pending * Provider: Marla HAHN M.D. Date: 0 12/18/2024 Generated for Printi ng/Faxing/eTransmitting on: 1 11/30/2024 08:05 AM EST
--- OUTSIDE RECORDS SUMMARY | 2025-01-01 10:15 | XMS_ITS ---
Author Organization [facility] Address [address] [place] [address] Care Team Providers Care Salvationist Name Role Phone MAYA HAHN Primary Care Provider Social History Sex Assigned At : Social History Observation Description Sex Assigned At Female Encounters Encounter Location Date Provider Diagnosis [facility] [address] [place] [address] 01/01/2025 MAYA HAHN Plan Of Treatment No Information Progress Notes * ZHOU SCHUMACHERNDOB: 7 (60 yo F)Acc No.[id number]:01/01/2025 Progress Notes Patient: SUMANTH PRAJAPATI Provider: Marla HAHN M.D. :1965 A ge:59 Y S ex:Female Date:01/01/2025 Address:[address], [place] * Electronic signature of MAYA HAHN MD on 09/29/2025 at 08:05 AM EST Sign off status: Pending * Provider: Marla HAHN M.D. Date: 0 01/01/2025 Generated for Anjali irvera/Robert/eTransmitting on: 1 11/30/2024 08:05 AM EST
--- NOTE | 2025-09-29 07:42 | A.OFFVIS_ITS ---
Vital Signs 09/29/25 07:53 Height 5 ft 6 in Weight 174 lb 9.698 oz BMI 28.2 BP 130/80 Blood Pressure Location Lt brachial Position Sitting Pulse 79 Pulse Source Pulse Oximeter Pulse Oximetry (%) 99 Oxygen Delivery Method Room Air Intake Visit Reasons: Follow up rheumatoid arthritis Intake Note: Patient presents today for follow up on RA and test results. 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: No Information Interpreted: non-clinical & clinical Accompanied by: Self / Same As Patient Allergies watermelon (WATERMELON) Allergy (Severe, Verified 09/29/25 07:48) HIVES/ASTHMA EXACERBATION latex (LATEX) Allergy (Intermediate, Verified 09/29/25 07:48) RASH/ASTHMA EXACERBATION cantaloupe Allergy (Verified 09/29/25 07:48) Hives grape Allergy (Verified 09/29/25 07:48) Hives nuts Allergy (Mild, Uncoded 06/16/25 07:37) Hives Medication List - Last Reconciled 09/29/25 by Jennifer Medrano MD acetaminophen ER (Tylenol Arthritis Pain) 1,300 mg PO Q12H PRN albuterol sulfate 90 mcg/actuation 2 puffs inhalation Q6H PRN amlodipine 2.5 mg PO DAILY atenolol 100 mg PO DAILY atomoxetine 80 mg PO DAILY atorvastatin 40 mg PO DAILY cetirizine (Zyrtec) 10 mg PO DAILY lactobacillus combination no.8 (Adult Probiotic) 3,000 mmu cells PO DAILY leflunomide 10 mg (1/2 x 20 mg) PO DAILY multivitamin 1 tab PO DAILY multivitamin with minerals (Hair,Skin and Nails tablet) 1 tab PO DAILY prednisone 5 mg PO DAILY sertraline 200 mg PO DAILY HPI Comments Details: Patient is a 59-year-old female with hypertension, hyperlipidemia, depression, polyarticular osteoarthritis (knees, hands) and seropositive rheumatoid arthritis here today for follow up Interval History: Patient last seen 03/26/2025 with me - On Leflunomide 20mg daily - Patient continues to do well. Does note that after a day of excess movement she is sore the following day - No prolonged morning stiffness - clinical remission, leflunomide decreased from 20mg to 10mg Today - On Leflunomide 10mg daily - Has noticed increased joint pain on the lower dose, involving the left elbow especially. Also notes some increased pain in the hands which was not there before Rheumatologic History: ++RF++CCP dx at age 20 Plaquenil, gold, prednisone, Enbrel, Humira-dates unknown Methotrexate-05/2020-01/2021- stopped due to hair loss/GI upset Leflunomide 10 mg- 01/2021-04/2021 -active disease on exam Leflunomide 20 mg -04/2021- present effective Current Rheumatology Medication(s): Leflunomide 10 mg daily [facility] Medical History [place] Family history of abdominal aortic aneurysm Chest pain Hypertension Left ankle effusion Seropositive rheumatoid arthritis Surgical History History of tonsillectomy Family History Father HTN (hypertension) Mother HTN (hypertension) Diabetes Social History Alcohol intake: current Alcohol intake frequency: holidays/special occasions only Alcohol type: wine Patient Tobacco Use Status: Never used Tobacco e-Cigarette/Vaping Use: Never Used Female Reproductive History Menstrual Age of Menarche: 12 Review of Systems Narrative Review of Systems Constitutional: Denies fever, chills, weight loss ENT: Denies vision changes, eye pain or eye redness, dental caries, dry mouth GI: Denies nausea, vomiting, diarrhea, abdominal pain, change in BM Pulm: Denies SOB, IBARRA, hemoptysis, wheezing Cards: Denies chest pain, palpitations Skin: Denies Raynaud's, rash, nail changes, photosensitivity, 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 Well appearing and in no apparent painful distress MSK Hands * Right Hand: Able to make a fist. No swelling or tenderness to palpation of the MCPs, PIPs or DIPs. * Left Hand: Able to make a fist. No swelling or tenderness to palpation of the MCPs, PIPs or DIPs. * Bilateral ulnar deviation, non reducible Wrists * Right Wrist: Full ROM to flexion and extension. No swelling or TTP * Left Wrist: Full ROM to flexion and extension. No swelling or TTP Elbows * Right Elbow: Full ROM. No swelling or TTP. No TTP of the medial epicondyle. No TTP of the lateral epicondyle * Left Elbow: Full ROM. No swelling but TTP of the elbow joint proper. No TTP of the medial epicondyle. No TTP of the lateral epicondyle Shoulders * Right shoulder: Full ROM. No swelling noted. No TTP of the AC joint. No TTP of the subacromial bursa. No TTP of the posterior shoulder * Left shoulder: Full ROM. No swelling noted. No TTP of the AC joint. No TTP of the subacromial bursa. No TTP of the posterior shoulder Knees * Right knee: Full ROM. No swelling noted. No TTP of the knee joint line. No TTP of pes anserine bursa * Left knee: Full ROM. No swelling noted. No TTP of the knee joint line. No TTP of pes anserine bursa. Ankles * Right ankle: Okay ankle dorsiflexion and plantar flexion. Decreased ROM to eversion and inversion (fixed). No swelling. No TTP of the ankle joint * Left ankle: Okay ankle dorsiflexion and plantar flexion. Decreased ROM to eversion and inversion (fixed).No swelling. No TTP of the ankle joint Feet * Right foot: Negative squeeze test * Left foot: Negative squeeze test Tender points? * No tenderness to palpation of the bilateral trapezius, supraspinatus, anterior costochondral junctions, bilateral suboccipital muscle insertions SKIN No rashes Results Reviewed Results Reviewed: Laboratory Tests 03/21/25 09/25/25 09/25/25 13:16 07:55 Unknown WBC 5.5 RBC 4.34 Hgb 13.1 Hct 41.0 Plt Count 299 ESR 13 Sodium 141 Potassium 4.2 Chloride 107 Carbon Dioxide 27 BUN 12 Creatinine 0.73 AST 30 40 H ALT 26 44 H C-Reactive Protein 0.34 Assessment & Plan Assessment & Plan (1) Seropositive rheumatoid arthritis: Comment: ++RF++CCP dx at age 20 Plaquenil, gold, prednisone, Enbrel, Humira-dates unknown Methotrexate-05/2020-01/2021- stopped due to hair loss/GI upset Leflunomide 10 mg- 01/2021-04/2021 -active disease on exam Leflunomide 20 mg -04/2021- present effective Code(s): M05.9 - Rheumatoid arthritis with rheumatoid factor, unspecified Category: Medical Plan: #Seropositive RA Patient is a 60 y.o. female with longstanding seropositive rheumatoid arthritis complicated by polyarticular osteoarthritis with bilateral ankle fusion here today for follow up. Lower dose of leflunomide met with worsening symptoms Elevated AST/ALT, will re check labs today with plan to increase the leflunomide back to 20mg Plan - Prednisone 5mg daily x 2 weeks - AST and ALT today, once okay will increase leflunomide back to 20mg - RTC 4 months - Labs before visit: CBC, CMP, ESR, CRP (2) Encounter for monitoring leflunomide therapy: Code(s): Z51.81 - Encounter for therapeutic drug level monitoring; Z79.69 - FPC (current) use of other immunomodulators and immunosuppressants Plan: #Long-term leflunomide Discussed with patient the benefits and risks of leflunomide for managing the rheumatic condition Benefits include: - Reduced pain, maintenance of remission and reduction of flares Risks include: - GI upset especially diarrhea, skin rash, cytopenias, hepatotoxicity, weight loss, neuropathy Leflunomide is highly teratogenic. ?Has a very long half-life. ?Needs cholestyramine washout if there is desire for Initiation: ?CBC, BMP, LFTs, hepatitis-B and C serologies every 2-4 weeks for 3 months Monitoring: ?CBC, BMP, LFTs, hepatitis B and C serologies Plan I spent 30 minutes reviewing the record and labs, taking a history, examining the patient, discussing the treatment plan, ordering diagnostic work up and documenting in the medical record Orders: Orders Comprehensive Met. Panel 4 Months Z79.899 - Other terminal superintendent (current) drug therapy Erythrocyte Sedimentation Rate 4 Months Z79.899 - Other terminal superintendent (current) drug therapy Aspartate Amino Transferase Today Z79.899 - Other fpc (current) drug therapy Complete Blood Count Auto Diff 4 Months Z79.899 - Other terminal superintendent (current) drug therapy C Reactive Protein 4 Months Z79.899 - Other terminal superintendent (current) drug therapy Alanine Aminotransferase Today Z79.899 - Other terminal superintendent (current) drug therapy Medications: New prednisone 5 mg PO DAILY 14 tabs 0RF M05.9 - Rheumatoid arthritis with rheumatoid factor, unspecified Changed From leflunomide 10 mg (1/2 x 20 mg) PO DAILY 90 tabs 1RF M05.9 - Rheumatoid arthritis with rheumatoid factor, unspecified To leflunomide 20 mg PO DAILY 90 tabs 1RF M05.9 - Rheumatoid arthritis with rheumatoid factor, unspecified From leflunomide 10 mg PO DAILY 90 tabs 1RF M05.9 - Rheumatoid arthritis with rheumatoid factor, unspecified To leflunomide 10 mg (1/2 x 20 mg) PO DAILY 90 tabs 1RF M05.9 - Rheumatoid arthritis with rheumatoid factor, unspecified Coding Level of Care Code Est Pt Level 4 (32637) Complex visit Add On G2211 Diagnoses Seropositive rheumatoid arthritis M05.9 Encounter for monitoring leflunomide therapy Z51.81; Z79.69
[2025-09-29 07:53] VITALS: BP 130/80; PULSE 79; O2SAT 99; BMI 28.2
--- OUTSIDE RECORDS SUMMARY | 2025-09-29 08:06 | XMS_ITS | Data Portability ---
Author Organization [facility], PAIN OFF[facility] Address [facility] [address] [address] Assessment Encounter Date Assessment Date Assessment LastModified [...] Recorded Time Degeneration of cervical intervertebral disc [id number] Nadeen mccarty MD [address] , [address], [place], [address], [place] [facility] 0 15:23:29 Muscle pain 11415191 Nadeen mccarty MD [address] , [address], [place], [address], [place] [facility] 0 15:23:39 Cervical radiculopathy [id number] Nadeen mccarty MD [address] , [address], [place], [address], [place] [facility] 0 15:32:48 Problem Notes None recorded. Procedures Surgical History Date Name Laterality Status Provider Name and Address Organization Details Recorded Time 0 Trigger Point Injections under ultrasound guidance completed Dane Arroyo MD [address] [facility] , [address], [place], [address], [place] [facility] 04/21/2020 14:26:48 0 Trigger Point Injections under ultrasound guidance completed Dane Arroyo MD [address] [facility] , [address], [place], [address], [place] [facility] 04/01/2020 15:18:06 0 Trigger Point Injections under ultrasound guidance completed Dane Arroyo MD [address] [facility] , [address], [place], [address], [place] [facility] 12/08/2019 16:03:55 0 Trigger Point Injections under ultrasound guidance completed Dane Arroyo MD [address] [facility] , [address], [place], [address], [place] [facility] 11/24/2019 15:37:48 Imaging Results None recorded. Procedure Notes None recorded. Medical Equipment None Reported. Allergies Allergen ID Allergen Name Allergen Category Reaction Reaction Severity Criticality Documentation Date Start Date Code Code System Note Provider Name and Address Organization Details Recorded Time 88583 latex environme nt,medica tion Not available Not available Not available 11/13/2019 12691 91 RxNorm Belia tillman, [place] - [place] [...] Recorded Body height Heart rate Oxygen saturation Systolic And Diastolic Provider Name and Address Organization Details Last Updated DateTime 11/24/2019 167.64 cm 79 /min 97 % 126/75 mm[Hg] Margot Florez [place] - [facility] 11/24/2019 15:20:31 Date Recorded Body height Heart rate Oxygen saturation Systolic And Diastolic Provider Name and Address Organization Details Last Updated DateTime 12/08/2019 167.64 cm 102 /min 98 % 134/83 mm[Hg] Margot Florez [place] [facility] 12/08/2019 15:03:48 Date Recorded Body height Heart rate Oxygen saturation Pain severity - 0-10 verbal numeric rating [Score] - Reported Systolic And Diastolic Provider Name and Address Organization Details Last Updated DateTime 12/25/2019 167.64 cm 94 /min 98 % 2 123/78 mm[Hg] Dane mccarty MD [address] , [address], [place], [address], [place] [facility] 0 15:29:53 Date Recorded Body height Heart rate Oxygen saturation Pain severity - 0-10 verbal numeric rating [Score] - Reported Systolic And Diastolic Provider Name and Address Organization Details Last Updated DateTime 04/01/2020 167.64 cm 81 /min 99 % 10 126/95 mm[Hg] Dane mccarty MD [address] , [address], [place], [address], [place] [facility] 0 13:44:32 Date Recorded Body height Heart rate Oxygen saturation Pain severity - 0-10 verbal numeric rating [Score] - Reported Body mass index (BMI) Body weight Systolic And Diastolic Provider Name and Address Organization Details Last Updated DateTime 0 167.64 cm 90 /min 98 % 3 26.6 kg/m2 51656.7 4 g 119/77 mm[Hg] Dane mccarty MD [address] , [facility] [address], [place], [address], [place] - [facility] 0 14:25:25 Social History Question Answer Notes LastModified by [employer] Details LastModified Time Tobacco Smoking Status Former Smoker Not Available [employer] 08/06/2020 03:16:10 Which Illicit Or Recreational Drugs Have You Used? None [id number] Information not available 08/06/2020 Education 4 Year College [email or web address] Information not available 11/13/2019 Marital Status [email or web address] Informati on not available 11/13/2019 Sex: Unknown Functional Status Question Answer Note LastModified by Organizat [employer] Details LastModified Time What is your level of alcohol consumption? Occasional [id number] Information not available 08/06/2020 Are you currently employed? 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 Current user of electronic cigarettes occassional [id number] Information not available 08/06/2020 Mental Status None [...] Diagnosis SNOMED-CT Code Diagnosis ICD10 Code Diagnosis IMO Codes Diagnosis Note [id number] Dane Arroyo MD [facility] [address] [place] [address] 11/13/2019 13:02:16 11/14/2019 15:38:58 Degeneration of cervical intervertebral disc 94217664 M50.30 Muscle pain 00414522 M79 .10 Cervical radiculopathy 97659126 M54.12 [id number] Dane Arroyo MD [facility] [address] [place] [address] 11/24/2019 15:13:24 11/24/2019 15:40:23 Degeneration of cervical intervertebral disc 82490430 M50.30 Muscle pain 38753876 M79 .10 Cervical radiculopathy 60031340 M54.12 [id number] Dane Arroyo MD PAIN OFFICE [address] [place] [address] 12/08/2019 14:50:07 12/08/2019 16:05:50 Degeneration of cervical intervertebral disc 48460563 M50.30 Muscle pain 71624426 M79 .10 Cervical radiculopathy 98253956 M54.12 [id number] Dane Arroyo MD [facility] [address] [facility] [place] [address] 12/25/2019 15:28:34 12/25/2019 17:12:08 Degeneration of cervical intervertebral disc 79343805 M50.30 Muscle pain 43427902 M79 .10 Cervical radiculopathy 12528372 M54.12 [id number] Dane Arroyo MD [facility] [address] [facility] [place] [address] 04/01/2020 13:36:40 04/01/2020 15:19:58 Degeneration of cervical intervertebral disc 09255838 M50.30 Muscle pain 38526898 M79 .10 Cervical radiculopathy 40759918 M54.12 [id number] Dane Arroyo MD PAIN OFFICE [address] [facility] [place] [address] 04/21/2020 13:53:16 04/22/2020 09:27:06 Degeneration of cervical intervertebral disc 87278183 M50.30 Muscle pain 59935472 M79 .10 Cervical radiculopathy 57547596 M54.12 Health Concerns Section Related Observation LastModified by Organization Detai ls LastModified Time None Recorded Concern Status LastModified by Organization Details LastModified Time None Recorded Advance Directives Directive None Recorded Payers Insurance Date Sequence Insurance Name Policy Number Policy Ortega Covered Member ID Ortega Member ID Guarantor Name 04/21/2020 1 [facility] [id number] Ly Gray [id number] Allysonchilango Gray 11/24/2020 2 () Ly [facility] [id number] [facility] Notes Date Note Type Note Provider Name and Address Organization Details Recorded Time 11/24/2019 text/html She is here for a trial of trigger point steroid injection in right trapezius muscle under ultrasound guidance. Dane Arroyo MD [address] [facility] , [address], [place], [address], [place] [facility] 11/24/2019 16:03:07 12/08/2019 text/html She is here for a repeat trigger point steroid injection in right trapezius muscle under ultrasound guidance. Dane Arroyo MD [address] [facility] , [address], [place], [address], [place] [facility] 12/09/2019 11:16:30 12/25/2019 text/html She is here for a follow up after trigger point injections and reports good pain benefit. She states overall she is moving her neck better. She still has some achiness but is overall feeling better. She has no radiating arm pain. She has no history of bladder or bowel incontinence.She is seeing a new strip cleaner at [place]. Dane Arroyo MD [address] [facility] , [address], [place], [address], [place] [facility] 12/26/2019 10:09:40 04/01/2020 text/html She is here for a repeat trigger point steroid injection in right trapezius muscle under ultrasound guidance. Dane Arroyo MD [address] [facility] , [address], [place], [address], [place] [facility] 04/01/2020 15:35:40 04/21/2020 text/html She is here for a repeat trigger point steroid injection in right trapezius muscle under ultrasound guidance. Dane Arroyo MD [address] [facility] , [address], [place], [address], [facility] 04/22/2020 15:44:33 OBGyn Episode No OBEpisode recorded.
--- OUTSIDE RECORDS SUMMARY | 2025-09-29 08:06 | XMS_ITS | Patient Health Record ---
Author Organization [facility] Address [address] [place] [address] Care Team Providers Care Instructor Trainer Canine Service Name Role Phone MAYA HAHN Primary Care Provider [phone] Allergies No Known Allergies Reason For Referral Reason Appt hearing loss [employer] insurance in place next week Diagnosis 1 Bilateral hearing lo ss, unspecified hearing loss type (H91.93) Referral Organization [facility] As sociates Referring Provider First Name MAYA Referring Provider Last Name SELMA Referring Provider Speciality Internal M edicine Referred Provider Specialty Ophthalmolog y, Otology, Laryngology, Rhinology Referral Priority Routine Medications Medication SIG (Take, Route, Frequency, Duration) Notes Start Date End Date Status Sertraline HCl 50 MG Tablet 1 tablet Orally daily Active ZyrTEC Allergy 10 MG Tablet 1 tablet Orally Once a day Active DULoxetine HCl 60 MG Capsule Delayed Release Particles 1 capsule Orally Once a day 40mg Active Strattera 60 MG Capsule 1 capsule Orally Once a day 40mg Active Albuterol Sulfate (2.5 MG/3ML) 0.083% Nebulization Solution inhale 3 milliliter by NEBULIZATION route 4 times every day Inhalation 04/27/2022 Active Asmanex HFA 100 MCG/ACT Aerosol 2 puffs Inhalation Twice a day need refill 03/05/2023 Active Atorvastatin Calcium 40 MG Tablet 1 tablet Orally Once a day Active Tobramycin 0.3 % Solution 1 drop into affected eye Ophthalmic Four times a day; Duration: 7 days 07/21/2025 Active Atenolol 100 MG Tablet 1 tablet Orally O nce a day Active EpiPen 2-Juan 0.3 MG/0.3ML Solution Auto-injector INJECT (0.3MG) BY INTRAMUSCULAR ROUTE ONCE NEEDED FOR ANAPHYLAXIS Injection 08/29/2022 Active Arava 10 MG Tablet 1 tablet Orally Once a day Active amLODIPine Besylate 2.5 MG Tablet TAKE 1 TABLET BY MOUTH EVERY DAY FOR 30 DAYS; Duration: 90 Active Albuterol Sulfate HFA 108 (90 Base) MCG/ACT Aerosol Solution 2 puffs as needed Inhalation every 4-6 hrs 05/29/2022 Active cloNIDine HCl 0.1 MG Tablet 1 tablet Orally at bedtime Active traZODone HCl 50 MG Tablet 1 tablet at bedtime Orally Once a day 12/09/2020 Active Immunizations Vaccine Route Administration Date Status Comme nts Pneumococcal, PPV 23 Unknown 10/22/2005 Administered Pneumococcal Prevnar 13 IM Intramuscular 10/22/2005 Admini stered Moderna COVID-19 mRNA LNP-S PF Unknown 10/24/2020 Administered Moderna COVID-19 mRNA LNP-S PF Unknown 11/21/2020 Administered Moderna COVID-19 mRNA LNP-S PF Unknown 08/31/2021 Administered Influenza, Flublok IM Intramuscular 07/21/2025 Administere d Social History Tobacco Use: Social History Observation Description Date Details (start date - stop date) Former Smoker NA - NA Sex Assigned At : Social History Observation Description Sex Assigned At Female Social History Tobacco Use: Social Info Question Answer Notes Smoking Are you a: former smoker Additional Details Category Social Info Options Details General asbestos exposure: no alcohol use: yes socially drug use: no Coffee/Tea/Soda: yes Coffee Marital Status experience no Living with smokers in household no Problems Problem Type SNOMED Code ICD Code Onset Dates Problem Status W/U Status Risk Notes Problem Obstructive sleep apnea (17425081) Obstructive sleep apnea (G47.33) Active confirmed Problem Essential hypertension (91019200) Essential (primary) hypertension (I10) Active confirmed Problem Attention deficit hyperactivity disorder (650573836) ADHD (attention deficit hyperactivity disorder), combined type (F90.2) Active confirmed Problem Mixed hyperlipidemia (946002744) Mixed hyperlipidemia (E78.2) Active confirmed Problem Uncomplicated mild persistent asthma (091079012) Mild persistent asthma without complication (J45.30) Active confirmed Problem Rheumatoid arthritis (47711015) Rheumatoid arthritis with positive rheumatoid factor, involving unspecified site (M05.9) Active confirmed Problem Hearing loss (39000876) Bilateral hearing loss, unspecified hearing loss type (H91.93) Active confirmed Problem Thyromegaly (2404788) Thyromegaly (E01.0) Active confirmed Problem Persistent depressive disorder (1770475757) Persistent depressive disorder (F34.1) Active confirmed Vital Signs Blood pressure diastolic 67 mm Hg 07/21/2025 Height 67.00 in 07/21/2025 Blood pressure systolic 121 mm Hg 07/21/2025 Weight 168 lbs 07/21/2025 BMI 26.31 kg/m2 07/21/2025 Encounters Encounter Location Date Provider Diagnosis [place] [id number] 07/21/2025 [facility] Acute conjunctivitis of right eye, unspecified acute conjunctivitis type H10.31 ; Essential (primary) hypertension I10 and Encounter for immunization Z23 [place] [id number] 03/11/2025 [facility] Essential (primary) hypertension I10 ; Mild persistent asthma without complication J45.30 and Persistent depressive disorder F34.1 [place] [id number] 01/20/2025 [facility] Essential (primary) hypertension I10 and ADHD (attention deficit hyperactivity disorder), combined type F90.2 [place] [id number] 01/02/2025 [facility] Essential (primary) hypertension I10 and Abnormal breast exam N64.59 [place] [id number] 12/10/2024 [facility] Encounter for genera l adult medical examination with abnormal findings Z00.01 ; Essential (primary) hypertension I10 ; Mild persistent asthma without complication J45.30 ; Rheumatoid arthritis with positive rheumatoid factor, involving unspecified site M05.9 ; Persistent depressive disorder F34.1 ; Mixed hyperlipidemia E78.2 ; Obstructive sleep apnea G47.33 ; Bilateral hearing loss, unspecified hearing loss type H91.93 and Thyromegaly E01.[address] [address] 12/10/[address] [place] [address] 10/06/[address] [place] [address] 01/02/2025 [facility] [address] [place] [address], [place] [address] 07/21/[address] [place] [address] 02/16/[address] [place] [address] 02/05/[address] [place] [address] 01/30/2025 [facility] Breast cancer screen ing by mammogram Z12.[address] [place] [address] 01/09/[address] [place] [address] 01/02/[address] [place] [address] 12/17/[address] [place] [address] 12/15/[address] [place] [address] 12/10/2024 [facility] Assessments Encounter Date Diagnosis (ICD Code) Assessment Notes Treatment Notes Treatment Clinical Notes Section Notes 07/21/2025 Acute conjunctivitis of right eye, unspecified acute conjunctivitis type (ICD-10 - H10.31) 1. Conjunctivitis right eye: Will treat with tobramycin drops and warm compresses. She will let me know if not improving 2. Hypertension: Stable on present therapy. Continue current atenolol and amlodipine. 3. Flu shot given today 01/02/2025 Essential (primary) hypertension (ICD-10 - I10) 1. Hypertension: Much improved from hospital reports. Appears to have developed side effects from lisinopril. Will change to hydrochlorothiaz jeyson. Psychiatry is considering guanfacine for ADHD and we may need to adjust as this may impact her blood pressure as well. Will plan to recheck in 3 weeks 2. Lesion on left breast: Will change mammogram order to diagnostic 01/02/2025 Abnormal breast exam (ICD-10 - N64.59) 1. Hypertension: Much improved from hospital reports. Appears to have developed side effects from lisinopril. Will change to hydrochlorothiaz jeyson. Psychiatry is considering guanfacine for ADHD and we may need to adjust as this may impact her blood pressure as well. Will plan to recheck in 3 weeks 2. Lesion on left breast: Will change mammogram order to diagnostic 01/20/2025 Essential (primary) hypertension (ICD-10 - I10) 1. Hypertension: Little apparent effect from hydrochlorothiaz jeyson. Will discontinue and start amlodipine 2.5 mg. Plans to recheck in February. She will call with any concerns in the interim 2. ADHD: New diagnosis. Follow on [facility] 01/20/2025 ADHD (attention deficit hyperactivity disorder), combined type (ICD-10 - F90.2) 1. Hypertension: Little apparent effect from hydrochlorothiaz jeyson. Will discontinue and start amlodipine 2.5 mg. Plans to recheck in February. She will call with any concerns in the interim 2. ADHD: New diagnosis. Follow on [facility] 01/30/2025 Breast cancer screening by mammogram (ICD-10 - Z12.31) 12/10/2024 Encounter for general adult medical examination with abnormal findings (ICD-10 - Z00.01) 1. routine healthcare maintenance: Colonoscopy is due in 2027. She will set up her mammogram. She is up-to-date with [employer]. We will update fasting blood work 2. Hypertension: Not optimal today. She reports much better readings at home. She will return in 3 months but will call me sooner if home readings are rising 3. Asthma: Some increase symptoms at night at times. We discussed the possibility of changing her maintenance inhaler. Will consider 4. Rheumatoid arthritis: Stable on Arava. Follows with rheumatology 5. Depression: Stable on present duloxetine. No changes made today 6. Hyperlipidemia: We will update profile on atorvastatin 7. Obstructive sleep apnea: He has not been sleeping through the night with her CPAP and this may be contributing to fatigue. We discussed considering a repeat study if needed 8. Hearing loss: Will refer to ENT 03/11/2025 Essential (primary) hypertension (ICD-10 - I10) 1. Hypertension: Stable on present therapy. No changes made today 2. Asthma: Will trial switching to Airsupra on demand and see if this regimen works better for her. I gave her a sample and she will update me on her progress in the next couple of weeks 3. Depression/anxie ty: Well-controlled on present regimen. Support given today 03/11/2025 Mild persistent asthma without complication (ICD-10 - J45.30) 1. Hypertension: Stable on present therapy. No changes made today 2. Asthma: Will trial switching to Airsupra on demand and see if this regimen works better for her. I gave her a sample and she will update me on her progress in the next couple of weeks 3. Depression/anxie ty: Well-controlled on present regimen. Support given today 03/11/2025 Persistent depressive disorder (ICD-10 - F34.1) 1. Hypertension: Stable on present therapy. No changes made today 2. Asthma: Will trial switching to Airsupra on demand and see if this regimen works better for her. I gave her a sample and she will update me on her progress in the next couple of weeks 3. Depression/anxie ty: Well-controlled on present regimen. Support given today 12/10/2024 Essential (primary) hypertension (ICD-10 - I10) 1. routine healthcare maintenance: Colonoscopy is due in 2027. She will set up her mammogram. She is up-to-date with [employer]. We will update fasting blood work 2. Hypertension: Not optimal today. She reports much better readings at home. She will return in 3 months but will call me sooner if home readings are rising 3. Asthma: Some increase symptoms at night at times. We discussed the possibility of changing her maintenance inhaler. Will consider 4. Rheumatoid arthritis: Stable on Arava. Follows with rheumatology 5. Depression: Stable on present duloxetine. No changes made today 6. Hyperlipidemia: We will update profile on atorvastatin 7. Obstructive sleep apnea: He has not been sleeping through the night with her CPAP and this may be contributing to fatigue. We discussed considering a repeat study if needed 8. Hearing loss: Will refer to ENT 07/21/2025 Essential (primary) hypertension (ICD-10 - I10) 1. Conjunctivitis right eye: Will treat with tobramycin drops and warm compresses. She will let me know if not improving 2. Hypertension: Stable on present therapy. Continue current atenolol and amlodipine. 3. Flu shot given today 07/21/2025 Encounter for immunization (ICD-10 - Z23) VIS sheet provided to patient influenza vaccine administered patient counseled 1. Conjunctivitis right eye: Will treat with tobramycin drops and warm compresses. She will let me know if not improving 2. Hypertension: Stable on present therapy. Continue current atenolol and amlodipine. 3. Flu shot given today 12/10/2024 Mild persistent asthma without complication (ICD-10 - J45.30) 1. routine healthcare maintenance: Colonoscopy is due in 2027. She will set up her mammogram. She is up-to-date with [employer]. We will update fasting blood work 2. Hypertension: Not optimal today. She reports much better readings at home. She will return in 3 months but will call me sooner if home readings are rising 3. Asthma: Some increase symptoms at night at times. We discussed the possibility of changing her maintenance inhaler. Will consider 4. Rheumatoid arthritis: Stable on Arava. Follows with rheumatology 5. Depression: Stable on present duloxetine. No changes made today 6. Hyperlipidemia: We will update profile on atorvastatin 7. Obstructive sleep apnea: He has not been sleeping through the night with her CPAP and this may be contributing to fatigue. We discussed considering a repeat study if needed 8. Hearing loss: Will refer to ENT 12/10/2024 Rheumatoid arthritis with positive rheumatoid factor, involving unspecified site (ICD-10 - M05.9) 1. routine healthcare maintenance: Colonoscopy is due in 2027. She will set up her mammogram. She is up-to-date with [employer]. We will update fasting blood work 2. Hypertension: Not optimal today. She reports much better readings at home. She will return in 3 months but will call me sooner if home readings are rising 3. Asthma: Some increase symptoms at night at times. We discussed the possibility of changing her maintenance inhaler. Will consider 4. Rheumatoid arthritis: Stable on Arava. Follows with rheumatology 5. Depression: Stable on present duloxetine. No changes made today 6. Hyperlipidemia: We will update profile on atorvastatin 7. Obstructive sleep apnea: He has not been sleeping through the night with her CPAP and this may be contributing to fatigue. We discussed considering a repeat study if needed 8. Hearing loss: Will refer to ENT 12/10/2024 Persistent depressive disorder (ICD-10 - F34.1) 1. routine healthcare maintenance: Colonoscopy is due in 2027. She will set up her mammogram. She is up-to-date with [employer]. We will update fasting blood work 2. Hypertension: Not optimal today. She reports much better readings at home. She will return in 3 months but will call me sooner if home readings are rising 3. Asthma: Some increase symptoms at night at times. We discussed the possibility of changing her maintenance inhaler. Will consider 4. Rheumatoid arthritis: Stable on Arava. Follows with rheumatology 5. Depression: Stable on present duloxetine. No changes made today 6. Hyperlipidemia: We will update profile on atorvastatin 7. Obstructive sleep apnea: He has not been sleeping through the night with her CPAP and this may be contributing to fatigue. We discussed considering a repeat study if needed 8. Hearing loss: Will refer to ENT 12/10/2024 Mixed hyperlipidemia (ICD-10 - E78.2) 1. routine healthcare maintenance: Colonoscopy is due in 2027. She will set up her mammogram. She is up-to-date with [employer]. We will update fasting blood work 2. Hypertension: Not optimal today. She reports much better readings at home. She will return in 3 months but will call me sooner if home readings are rising 3. Asthma: Some increase symptoms at night at times. We discussed the possibility of changing her maintenance inhaler. Will consider 4. Rheumatoid arthritis: Stable on Arava. Follows with rheumatology 5. Depression: Stable on present duloxetine. No changes made today 6. Hyperlipidemia: We will update profile on atorvastatin 7. Obstructive sleep apnea: He has not been sleeping through the night with her CPAP and this may be contributing to fatigue. We discussed considering a repeat study if needed 8. Hearing loss: Will refer to ENT 12/10/2024 Obstructive sleep apnea (ICD-10 - G47.33) 1. routine healthcare maintenance: Colonoscopy is due in 2027. She will set up her mammogram. She is up-to-date with [employer]. We will update fasting blood work 2. Hypertension: Not optimal today. She reports much better readings at home. She will return in 3 months but will call me sooner if home readings are rising 3. Asthma: Some increase symptoms at night at times. We discussed the possibility of changing her maintenance inhaler. Will consider 4. Rheumatoid arthritis: Stable on Arava. Follows with rheumatology 5. Depression: Stable on present duloxetine. No changes made today 6. Hyperlipidemia: We will update profile on atorvastatin 7. Obstructive sleep apnea: He has not been sleeping through the night with her CPAP and this may be contributing to fatigue. We discussed considering a repeat study if needed 8. Hearing loss: Will refer to ENT 12/10/2024 Bilateral hearing loss, unspecified hearing loss type (ICD-10 - H91.93) 1. routine healthcare maintenance: Colonoscopy is due in 2027. She will set up her mammogram. She is up-to-date with [employer]. We will update fasting blood work 2. Hypertension: Not optimal today. She reports much better readings at home. She will return in 3 months but will call me sooner if home readings are rising 3. Asthma: Some increase symptoms at night at times. We discussed the possibility of changing her maintenance inhaler. Will consider 4. Rheumatoid arthritis: Stable on Arava. Follows with rheumatology 5. Depression: Stable on present duloxetine. No changes made today 6. Hyperlipidemia: We will update profile on atorvastatin 7. Obstructive sleep apnea: He has not been sleeping through the night with her CPAP and this may be contributing to fatigue. We discussed considering a repeat study if needed 8. Hearing loss: Will refer to ENT 12/10/2024 Thyromegaly (ICD-10 - E01.0) 1. routine healthcare maintenance: Colonoscopy is due in 2027. She will set up her mammogram. She is up-to-date with [employer]. We will update fasting blood work 2. Hypertension: Not optimal today. She reports much better readings at home. She will return in 3 months but will call me sooner if home readings are rising 3. Asthma: Some increase symptoms at night at times. We discussed the possibility of changing her maintenance inhaler. Will consider 4. Rheumatoid arthritis: Stable on Arava. Follows with rheumatology 5. Depression: Stable on present duloxetine. No changes made today 6. Hyperlipidemia: We will update profile on atorvastatin 7. Obstructive sleep apnea: He has not been sleeping through the night with her CPAP and this may be contributing to fatigue. We discussed considering a repeat study if needed 8. Hearing loss: Will refer to ENT Plan Of Treatment Pending Test Test Name Order Date EKG 12/10/2024 3D Tomosynthesis or Mammogra m Screening Bilateral, Perform Diagnostic Mammogram/3D Tomosynthesis and/or Ultrasound if warranted 01/30/2025 Future Test Test Name Order Date CBC, Platelet, w/o [id number] 12/10/2024 Lipid Panel-[id number] 12/10/2024 TSH Rfx on Abnormal to Free [id number] Comp. Metabolic Panel [id number] 2024 Insurance Providers Payer Name Payer Address Payer Phone Subscriber Number Group Number Insured Name Patient Relationship to Insured Coverage Start Date Coverage End Date [facility] [address] [place] [address] [id number] SUMANTH SCHUMACHER Self - patient is the insured 5 SELF-PAY SUMANTH SCHUMACHER Self - patient is the insured 5 Medical (General) History Medical History History ICD Code rheumatoid arthritis, Hypertension, Asthma, ADHD combined Surgical History Surgery Date(Month/Year)
== END 2025-09-29 08:18 | disposition home or self-care (01) ==
LOC: HO.RHES 07:41
PROVIDERS: PCP Internal Medicine; Visit Provider Student in an Organized Health Care Education/Training Program
DX: M05.9 Rheumatoid arthritis with rheumatoid factor, unspecified (principal); Z51.81 Encounter for therapeutic drug level monitoring; Z79.69 Long term (current) use of other immunomodulators and immunosuppressants
CPT/HCPCS: 99214; G2211